=== PATIENT | female | born 1970 | race Caucasian/White ===

== ENCOUNTER 2017-07-13 21:06 | Emergency (ER) | payer OTHER ==
[~2017-07-13] VITALS: Ht 157.5 cm; Wt 96.4 kg
[2017-07-13 21:12] VITALS: TEMP 37; Ht 157.5 cm; Wt 96.4 kg
[2017-07-13] MEDS ORDERED: ONDANSETRON INJ 2 MG/ML 2 ML VIAL IV STA (21:17)
[2017-07-13] MEDS ORDERED: KETOROLAC TROMETHAMINE 30 MG/ML VIAL IV STA (21:17)
[2017-07-13] MEDS ORDERED: LORAZEPAM 2 MG/ML 1 ML VIAL IV STA (21:17)
[2017-07-13] MEDS ORDERED: SODIUM CHLORIDE 0.9% 500ML 500 ML IV STA (21:17)
[2017-07-13] MEDS ORDERED: MoRPHine SULFATE 4 MG/ML 1 ML CARP\\VIAL IV PRN (21:30)
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
[2017-07-13] MEDS ORDERED: ASPI81TA28 PO (21:45)
[2017-07-13] MEDS ORDERED: GLUC500C4 PO (21:47)
[2017-07-13] MEDS ORDERED: HRBLS PO (21:49)
--- NOTE | 2017-07-13 22:27 | DIAGNOSTIC IMAGING REPORT ---
CERVICAL SPINE W/O CT DOSE: 261.75 mGy.cm CLINICAL HISTORY: 46 years-old Female with fall, pain. Acute neck pain status post fall. Initial exam. COMPARISON: None. TECHNIQUE: Multiple axial CT images of the cervical spine were obtained without contrast. A dose lowering technique was utilized adhering to the principles of ALARA. FINDINGS: Vertebral body heights and alignment are normal. No fracture or subluxation is identifed. Moderate intervertebral disc space narrowing at C6-C7. No significant central canal or neural foraminal stenosis is identified. 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 There is mild multilevel facet arthropathy and uncovertebral spurring. The cervical soft tissues appear unremarkable. The visualized lung apices appear clear. IMPRESSION: 1. No acute cervical spine fracture or subluxation. 2. Mild multilevel facet arthrosis and uncovertebral spurring. There is moderate intervertebral disc space narrowing at C6-C7. The above report was generated using voice recognition software. It may contain grammatical, syntax or spelling errors. Electronically signed by: Neftali Kee M.D. 07/13/2017 10:25 PM Dictated Date/Time: 07/13/2017 10:23 PM
--- NOTE | 2017-07-13 23:06 | DIAGNOSTIC IMAGING REPORT ---
CHEST ONE VIEW PORTABLE HISTORY: 46 years-old Female fall, pain acute chest pain status post fall. COMPARISON: None available. TECHNIQUE: Portable upright AP view of the chest. FINDINGS: Cardiac silhouette is mildly enlarged. No pneumothorax, pleural effusion, focal airspace consolidation or overt pulmonary edema. The bones are grossly intact. IMPRESSION: No acute cardiopulmonary process. The above report was generated using voice recognition software. It may contain grammatical, syntax or spelling errors. Electronically signed by: Neftali Kee M.D. 07/13/2017 11:05 PM Dictated Date/Time: 07/13/2017 11:04 PM
--- NOTE | 2017-07-13 23:12 | DIAGNOSTIC IMAGING REPORT ---
LEFT FOREARM 2 VIEWS ROUTINE, LEFT ELBOW MIN 3 VIEWS ROUTINE, LEFT HUMERUS MIN 2 VIEWS ROUTINE, LEFT SHOULDER MIN 2 VIEWS ROUTINE, LEFT CLAVICLE HISTORY: 46 years-old Female fall, pain acute left upper extremity pain status post fall. Initial exam. COMPARISON: None available. TECHNIQUE: 2 views of the left shoulder, 2 views of the left clavicle, 2 views of the left humerus, 3 views of left elbow and 2 views of the left forearm. FINDINGS: SHOULDER: Mild AC joint degenerative changes are noted. Study is mildly limited secondary to positioning. No acute fracture or dislocation of the left humerus. Glenohumeral joint is located. CLAVICLE: No acute fracture or dislocation. HUMERUS: No acute fracture or dislocation. ELBOW: No acute fracture, or dislocation. There is minimal spurring about the medial and lateral epicondyles at the expected insertion sites of the common flexor and extensor tendons respectively. No joint effusion. Minimal spurring of the coronoid process. FOREARM: No acute fracture or dislocation. Negative for opaque foreign body. IMPRESSION: 1. No acute fracture or dislocation identified involving the left clavicle, shoulder or imaged left upper extremity. 2. Mild degenerative changes about the left AC joint and elbow. The above report was generated using voice recognition software. It may contain grammatical, syntax or spelling errors. Electronically signed by: Neftali Kee M.D. 07/13/2017 11:11 PM Dictated Date/Time: 07/13/2017 11:05 PM
--- NOTE | 2017-07-13 23:13 | DIAGNOSTIC IMAGING REPORT ---
LEFT PELVIS/UNILATERAL HIP 2-3VIEWS HISTORY: 46 years-old Female FALL, PAIN, acute pelvic and left hip pain status post fall. COMPARISON: None available TECHNIQUE: AP view of the pelvis with 2 views of the left hip FINDINGS: Mild pubic symphysis degenerative changes are noted. There is no acute fracture or dislocation identified. The left hip appears normal without fracture or dislocation. No significant degenerative changes. Negative for opaque foreign body. IMPRESSION: No acute fracture or dislocation of the pelvis or left hip. The above report was generated using voice recognition software. It may contain grammatical, syntax or spelling errors. Electronically signed by: Neftali Kee M.D. 07/13/2017 11:12 PM Dictated Date/Time: 07/13/2017 11:11 PM
[2017-07-14] VITALS: BP 132/76; PULSE 74; O2SAT 98
[2017-07-31] MEDS ORDERED: CYAN250T PO (21:43)
[2017-07-31] MEDS ORDERED: ZINC1TAB PO (21:44)
[2017-07-31] MEDS ORDERED: ASCO250T5 PO (21:45)
[2017-07-31] MEDS ORDERED: ACET-1256 PO (21:46)
== END 2017-07-14 00:02 | disposition home or self-care (01) ==
LOC: EDBD 21:06 → C.EDB 21:07
DX: S16.1XXA Strain of muscle, fascia and tendon at neck level, initial encounter (principal); T14.8 Other injury of unspecified body region; W01.0XXA Fall on same level from slipping, tripping and stumbling without subsequent striking against object, initial encounter; Y92.481 Parking lot as the place of occurrence of the external cause; Z87.81 Personal history of (healed) traumatic fracture; Z79.82 Long term (current) use of aspirin; Z79.899 Other long term (current) drug therapy; Z80.9 Family history of malignant neoplasm, unspecified; Z83.3 Family history of diabetes mellitus; Z82.49 Family history of ischemic heart disease and other diseases of the circulatory system

== ENCOUNTER 2017-07-31 21:59 | Emergency (ER) | payer SELFPAY ==
[~2017-07-31] VITALS: Ht 157.5 cm; Wt 97.7 kg
[~2017-07-31 21:59] MED LIST: ACET-1256 PO; ASCO250T5 PO; ASPI81TA28 PO; CYAN250T PO; GLUC500C4 PO; HRBLS PO; ZINC1TAB PO
[2017-07-31 22:08] VITALS: TEMP 36.8; Ht 157.5 cm; Wt 97.7 kg
--- NOTE | 2017-07-31 22:34 | DIAGNOSTIC IMAGING REPORT ---
L ELBOW MIN 3 VIEWS ROUTINE CLINICAL HISTORY: left elbow injury 2 wks ago, persistent pain pain COMPARISON: None. DISCUSSION: The bones and joint spaces appear intact. There is no evidence of fracture, dislocation or bony disease. There is no evidence for soft tissue swelling. IMPRESSION: Negative study. The above report was generated using voice recognition software. It may contain grammatical, syntax or spelling errors. Electronically signed by: Pierre Schroeder M.D. 07/31/2017 10:33 PM Dictated Date/Time: 07/31/2017 10:32 PM
[2017-07-31] MEDS ORDERED: GLUC500C4 PO (22:43)
[2017-07-31] MEDS ORDERED: [UNRECOGNIZED DRUG - OTHER] PO (22:43)
[2017-07-31] MEDS ORDERED: ACET-1487 PO (22:43)
--- NOTE | 2017-07-31 23:06 | EMERGENCY ROOM VISIT NOTE ---
History First contact with patient: 22:12 Chief Complaint: ARM PAIN Stated Complaint: FELL LEFT ARM AT [facility] History of Present Illness The patient is a 46 year old female who presents to the Emergency Room with complaints of persistent left elbow pain. The patient states that she fell on July 13 while at [facility]. She was seen here that day and had multiple imaging studies done which were negative. The patient states she has had persistent pain in the left elbow. She states that when she overuses the elbow , she has numbness from the elbow down to the hand. This numbness is not constant. The pain is worse with movement of the elbow. She rates her discomfort a 10/10. She has not followed up with her primary care provider or orthopedics regarding this pain. She denies any new injuries. Review of Systems A complete 10 point review of systems was reviewed with the patient with pertinent positives and negatives as per history of present illness. All else were negative. Past Medical/Surgical History Medical Problems: (1) Leg fracture, right Family History Cancer Diabetes mellitus FH: heart disease Hypertension Social History Smoking Status: Never Smoker Marital Status: single Occupation Status: employed Current/Historical Medications Scheduled Acetaminophen (Tylenol Arthritis Ext Rel), 650 MG PO DAILY Ascorbic Acid (Ascorbic Acid), 250 MG PO DAILY Cyanocobalamin (Vitamin B-12), 250 MCG PO DAILY Glucosamine Sulfate (Glucosamine), 1 TAB PO Q3DAYS Zinc Gluconate (Zinc), 50 MG PO DAILY [New Life Formula], 2 CAP PO DAILY Scheduled PRN Acetaminophen (Tylenol), 1,000 MG PO DAILY PRN for Pain Physical Exam Vital Signs Date Time Temp Pulse Resp B/P (MAP) Pulse Ox O2 Delivery O2 Flow Rate FiO2 07/31/17 22:08 36.8 80 18 170/102 98 Room Air Physical Exam VITALS: Vitals are noted on the nurse's note and reviewed by myself. Vital signs stable. GENERAL: This is a 46 year old female, in no acute distress, nondiaphoretic, well-developed well-nourished. SKIN: There is no erythema or warmth to suggest cellulitis. MUSCULOSKELETAL: No deformities noted. There is mild tenderness over the left elbow. No redness or swelling. Full range of motion of the elbow. NEURO: Patient was alert and oriented to person place and time. Normal sensation over the left upper extremity. Medical Decision & Procedures ER Provider Diagnostic Interpretation: L ELBOW MIN 3 VIEWS ROUTINE CLINICAL HISTORY: left elbow injury 2 wks ago, persistent pain pain COMPARISON: None. DISCUSSION: The bones and joint spaces appear intact. There is no evidence of fracture, dislocation or bony disease. There is no evidence for soft tissue swelling. IMPRESSION: Negative study. Medical Decision Differential diagnosis includes fracture, sprain, contusion, among others. The patient is a 46-year-old female who presents today complaining of persistent left elbow pain. The patient was seen here approximately 2 weeks ago and had negative x-rays. On exam she has mild tenderness of the elbow. X- ray was performed and showed no findings. Patient was given information for orthopedic referral. She was instructed to take anti-inflammatories and conservative measures were discussed. The patient verbalized understanding of my assessment and treatment plan and was discharged home in good condition. Medication Reconcilliation Current Medication List: was personally reviewed by me Blood Pressure Screening Patient's blood pressure: Elevated blood pressure Blood pressure disposition: Elevated BP felt to be situational Impression Primary Impression: Left elbow pain Departure Information Dispostion Home / Self-Care Condition GOOD Referrals No Doctor, Assigned (PCP) Mal Goff M.D. Patient Instructions My [facility] Additional Instructions You have been treated in the Emergency Department for Elbow Pain. For pain control, you can use the following [id number] medicines (if >12 yo): - Regular strength (325mg/tab) Tylenol (acetaminophen) 2 tabs every 4-6 hours as needed. Do not exceed 12 tablets in a 24 hour period. Avoid taking more than 4 grams (4000 mg) of Tylenol per day. This includes any other sources of acetaminophen you may take on a regular basis. - Regular strength (200 mg/tab) Advil (ibuprofen) 1-2 tabs every 4-6 hours as needed. Do not exceed a dose of 3200 mg per day. If this is a recent injury (<24 hrs), ice can be applied to the area of pain for the first 3 days to help decrease pain and inflammation. You have been provided the number for an Orthopaedic Surgeon. You should call this number as soon as possible to establish a follow-up visit from today's Emergency Department visit. Return to the Emergency Department if your current symptoms worsen despite treatment course outlined above, or if you develop any of the following symptoms : intractable pain despite aforementioned treatment course or new onset of numbness or tingling of the arm.
[2017-07-31 23:32] VITALS: BP 132/81; PULSE 69; O2SAT 98
== END 2017-07-31 23:33 | disposition home or self-care (01) ==
LOC: C.EDB 22:01
DX: M25.522 Pain in left elbow (principal); Z83.3 Family history of diabetes mellitus; Z82.49 Family history of ischemic heart disease and other diseases of the circulatory system

== ENCOUNTER 2017-11-26 22:59 | Emergency (ER) | payer SELFPAY ==
[~2017-11-26] VITALS: Ht 157.5 cm; Wt 93.0 kg
[~2017-11-26 22:59] MED LIST changes: +ACET-1487 PO; -ASPI81TA28 PO; -HRBLS PO; +[UNRECOGNIZED DRUG - OTHER] PO
[2017-11-26 23:03] VITALS: TEMP 36.8; Ht 157.5 cm; Wt 93.0 kg
[2017-11-27] MEDS ORDERED: VITA400C3 PO (00:14)
--- NOTE | 2017-11-27 00:19 | EMERGENCY ROOM VISIT NOTE ---
History First contact with patient: 23:24 Chief Complaint: FOOT PAIN Stated Complaint: RIGHT FOOT PAIN History of Present Illness The patient is a 47 year old female who presents to the Emergency Room via private vehicle accompanied by female with complaints of "right foot pain". The patient states that she had a previous injury on July 13 at [facility]. She notes that she slipped on shampoo. She has had pain off and on since that time. She states that she was told she had a fracture but then notes that she was told that she did not. She was put in a walking boot. She states that she was doing well until this Thursday when she was walking and injured the foot again in the same region. She notes now she cannot bear weight secondary to pain. She rates her pain is a 13/10. She points to the lateral malleolus of the right ankle as a location of pain. She denies any numbness or tingling. Review of Systems A complete 6-point Review of Systems was discussed with the patient, with pertinent positives and negatives listed in the History of Present Illness. All remaining Review of Systems questions can be considered negative unless otherwise specified. Past Medical/Surgical History Medical Problems: (1) Leg fracture, right Family History Cancer Diabetes mellitus FH: heart disease Hypertension Social History Smoking Status: Former Smoker Marital Status: single Occupation Status: employed Current/Historical Medications Scheduled Acetaminophen (Tylenol Arthritis Ext Rel), 650 MG PO DAILY Ascorbic Acid (Ascorbic Acid), 250 MG PO DAILY Cyanocobalamin (Vitamin B-12), 250 MCG PO DAILY Glucosamine Sulfate (Glucosamine), 1 TAB PO Q3DAYS Vitamin E (Vitamin E 400 Iu), 400 INTER.UNIT PO DAILY Zinc Gluconate (Zinc), 50 MG PO DAILY [New Life Formula], 2 CAP PO DAILY Scheduled PRN Acetaminophen (Tylenol), 1,000 MG PO DAILY PRN for Pain Physical Exam Vital Signs Date Time Temp Pulse Resp B/P (MAP) Pulse Ox O2 Delivery O2 Flow Rate FiO2 11/26/17 23:03 36.8 75 16 164/100 98 Room Air Physical Exam VITAL SIGNS - Vital signs and nursing notes were reviewed. Stable. Hypertensive. GENERAL -47-year-old female appearing her stated age who is in no acute distress. Communicates well with provider and answers questions appropriately. SKIN - Without rashes. No petechial rashes. The skin overlying the right ankle is unremarkable. HEAD - NC/AT. EXTREMITIES - No clubbing or peripheral cyanosis. No pretibial edema present. Tenderness to palpation overlying the patient's right lateral malleolus. No other proximal or distal tenderness noted. Decreased range of motion secondary to pain. She is neurovascularly intact in this region. Medical Decision & Procedures ER Provider Diagnostic Interpretation: Right ankle x-ray as read by myself to reveal no acute fracture or dislocation. Degenerative changes noted. This was compared to previous x-ray here and at this time I do not believe has been any significant change. Medical Decision Patient was seen and evaluated as above. She presents to us today with right ankle pain. X-ray was obtained with results as above. This was compared to previous x-ray and no significant change was noted. I suspect likely sprained the ankle. She was placed in her well-padded fracture boot. She is to remain nonweightbearing with crutches she has at home. She is to follow with her established orthopedic surgeon. She is to call them tomorrow. She was educated upon management, educated upon worrisome symptoms which to return, had questions answered prior to discharge, and was discharged home in good condition. In the evaluation and treatment of this patient, the following differential diagnoses were considered: Ankle Fracture, Ankle Sprain, Distal Fibula Fracture , Distal Tibia Fracture, Foot Fracture, Maisonneuve Fracture. Impression Primary Impression: Ankle pain, right Departure Information Dispostion Home / Self-Care Condition GOOD Referrals No Doctor, Assigned (PCP) Patient Instructions My [facility] Additional Instructions You have been treated in the Emergency Department for a Right Ankle injury. For pain control, you can use the following [id number] medicines : - Regular strength (325mg/tab) Tylenol (acetaminophen) 2 tabs every 4-6 hours as needed. Do not exceed 12 tablets in a 24 hour period. Avoid taking more than 3 grams (3000 mg) of Tylenol per day. This includes any other sources of acetaminophen you may take on a regular basis. - Regular strength (200 mg/tab) Advil (ibuprofen) 1-2 tabs every 4-6 hours as needed. Do not exceed a dose of 3200 mg per day. If this is a recent injury (<24 hrs), ice can be applied to the area of pain for the first 3 days to help decrease pain and inflammation. You should call your orthopedic doctor as soon as possible to establish a follow-up visit from today's Emergency Department visit. Keep the ankle brace/splint in place until cleared by Orthopedics. Use the crutches you have been provided to keep ALL weight off of the ankle until weight bearing is tolerable. Return to the Emergency Department if your current symptoms worsen despite treatment course outlined above, or if you develop any of the following symptoms : intractable pain despite aforementioned treatment course or new onset of numbness or tingling of the foot.
[2017-11-27 00:44] VITALS: BP 153/87; PULSE 69; O2SAT 97
--- NOTE | 2017-11-27 07:30 | DIAGNOSTIC IMAGING REPORT ---
RIGHT ANKLE 3 VIEWS HISTORY: r ankle pain COMPARISON: Right ankle 10/12/2017. FINDINGS: No fracture or dislocation within the right ankle. Diffuse soft tissue swelling. Plantar and posterior calcaneal spurs. Well-corticated ossific density adjacent to the lateral base of the fifth metatarsal. This appears slightly more displaced when compared to the prior studies and could represent an avulsion injury of the peroneus brevis tendon. IMPRESSION: 1. No acute fracture or dislocation within the right ankle. 2. Well-corticated ossific density adjacent to the lateral base of the fifth metatarsal. This appears slightly more displaced when compared to the prior studies and could represent an avulsion injury of the peroneus brevis tendon. Recommend correlation for pain at this location to assess for an acute injury. Electronically signed by: Gavin Sommer M.D. 11/27/2017 7:29 AM Dictated Date/Time: 11/27/2017 7:27 AM
== END 2017-11-27 00:45 | disposition home or self-care (01) ==
LOC: C.EDB 23:00 → C.EDA 11-27 00:45
DX: M79.671 Pain in right foot (principal); Z87.828 Personal history of other (healed) physical injury and trauma; Z87.891 Personal history of nicotine dependence; R93.7 Abnormal findings on diagnostic imaging of other parts of musculoskeletal system

== ENCOUNTER 2019-10-12 12:54 | Inpatient (IN) ==
[2019-10-12] MEDS ORDERED: SODIUM CHLORIDE 0.9% 1000ML 1,000 ML IV ONE (13:39)
[2019-10-12] MEDS ORDERED: ONDANSETRON INJ 2 MG/ML 2 ML VIAL IV STA (13:39)
[2019-10-12] MEDS ORDERED: SUCRALFATE 1 GM TAB PO STA (13:40)
[2019-10-12] MEDS ORDERED: GI COCKTAIL ED USE PO ONE (13:40)
[2019-10-12] MEDS ORDERED: FAMOTIDINE 40 MG TABLET PO ONE (13:40)
[2019-10-12 13:46] LABS: Basophils # (auto) 0.03 K/uL (0-0.2); Basophils % (auto) 0.3 %; Eosinophils % (auto) 2.2 %; Hematocrit (blood only) 36.8 % (37-47); Hemoglobin 12.2 g/dL (12.0-16.0); Immature Granulocytes # (auto) 0.01 K/uL (0.00-0.02); Immature Granulocytes % (auto) 0.1 %; Lymphocytes # (auto) 2.07 K/uL (1.2-3.4); Lymphocytes % (auto) 22.3 %; Mean Corpuscular Hemoglobin 28.4 pg (25-34); Mean Corpuscular Hgb Conc 33.2 g/dL (32-36); Mean Corpuscular Volume 85.8 fL (80-100); Mean Platelet Volume 8.7 fL (7.4-10.4); Monocytes # (auto) 0.62 K/uL (0.11-0.59); Monocytes % (auto) 6.7 %; Neutrophils # (auto) 6.35 K/uL (1.4-6.5); Neutrophils % (auto) 68.4 %; Platelet Count 337 K/uL (130-400); RDW Coefficient of Variation 15.4 % (11.5-14.5); RDW Standard Deviation 48.3 fL (36.4-46.3); Red Blood Count 4.29 M/uL (4.2-5.4); White Blood Count 9.28 K/uL (4.8-10.8)
--- NOTE | 2019-10-12 13:56 | XRay Report ---
XR chest 1V portable CLINICAL HISTORY: Chest Pain dyspnea COMPARISON STUDY: 07/13/2017 FINDINGS: The bones soft tissues and hemidiaphragms are normal. The cardiomediastinal silhouette is n ormal. The lungs are clear. The pulmonary vasculature is normal. IMPRESSION: Negative chest. The above report was generated using voice recognition software. It may contain grammatical, syntax or spelling errors. Electronically signed by: Pierre Schroeder M.D. 10/12/2019 1:55 PM
[2019-10-12] MEDS ORDERED: FAMOTIDINE 20 MG TAB PO ONE (14:00)
[2019-10-12 14:08] LABS: Albumin Level 3.8 gm/dl (3.4-5.0); BUN Creatinine Ratio 13.6 (10-20); Calcium 9.2 mg/dl (8.5-10.1); Creatinine Clr Calc Pharmacy 82.6 ml/min; Est GFR (African American) 82.6; Est GFR (Non-African American) 71.2; Potassium 3.7 mmol/L (3.5-5.1)
[2019-10-12 14:13] LABS: Appearance Urine Cloudy (Clear); Bacteria Urine Automated 1+ (Negative); Bilirubin Urine Negative (Negative); Blood Urine Negative (Negative); Color Urine Dark Yellow; Epithelial Cell Urine Auto >30 /lpf (0-5); Glucose Urine UA Negative (Negative); Ketones Urine Trace (Negative); Leukocyte Esterase Urine 1+ (Negative); Nitrite Urine Negative (Negative); Protein Urine 1+ (Negative); Specific Gravity Urine 1.034 (1.000-1.030); Urobilinogen Urine Negative (Negative); WBC Urine Automated >30 /hpf (0-5)
[2019-10-12 14:16] LABS: Albumin Globulin Ratio 0.9 (0.9-2); Bilirubin,Total 0.3 mg/dl (0.2-1); Creatine Kinase MB 5.2 ng/ml (0.5-3.6); Globulin 4.4 gm/dl (2.5-4.0); Total Protein 8.2 gm/dl (6.4-8.2); Troponin I 1.54 ng/ml (0-0.045)
[2019-10-12] MEDS ORDERED: ASPIRIN CHEW 324 MG PO STA ×2 (14:18→14:20)
--- NOTE | 2019-10-12 14:19 | Emergency Department Note ---
Entered by Bailey Michelle acting as a scribe for History of Present Illness General Chief complaint: Chest Pain Stated complaint: CHEST PAIN Time Seen by Provider: 10/12/19 13:28 Source: patient History of Present Illness Provider complaint: Chest Pain Onset (ago): week(s) 1 Location: chest Radiation: non-radiation Maximum Pain Intensity: 5 Exacerbated By: + eating Associated symptoms: + denies other symptoms (Diarrhea, abdominal pain) and + nausea/vomiting The patient is a 49 year old female who presents to the Emergency Room with complaints of chest pain that began 1 week ago. The patient states the pain does not radiate anywhere else on her body but is exacerbated by eating. The patient reports she experiences this chest pain before and after vomiting but denies experiencing any diarrhea or abdominal pain. The patient states that her chest pain takes about 20-45 minutes to go away. The patient mentioned that there is no cardiac history in her family and she does not smoke or do drugs. The patient also notes that she did not hit her head. Home Medications Home Medications Medication Instructions Recorded Confirmed Type acetaminophen 1,000 mg PO BID PRN 07/19/18 10/17/19 History ascorbic acid (vitamin C) [Vitamin 500 mg PO DAILY 10/12/19 10/17/19 History C] cyanocobalamin (vitamin B-12) 250 mcg PO DAILY 10/12/19 10/17/19 History [Vitamin B-12] aspirin [Ecotrin Low Strength] 81 mg PO QAM #30 tab 10/14/19 10/17/19 Rx atorvastatin 80 mg PO QAM #30 tab 10/14/19 10/17/19 Rx clopidogrel [Plavix] 75 mg PO QPM #30 tab 10/14/19 10/17/19 Rx lisinopril [Zestril] 5 mg PO QAM #30 tab 10/14/19 10/17/19 Rx metoprolol succinate 50 mg PO QPM #30 tab 10/14/19 10/17/19 Rx vitamin E 1,000 unit capsule See Rx Instructions PO Q3D cap 10/16/19 10/17/19 History Allergies Allergy/AdvReac Type Severity Reaction Status Date / Time TOPICAL IODINE Allergy Intermediate "SKIN Uncoded 10/12/19 15:32 BLISTERS" Past Med/Surg History Medical History No acute medical problems No significant medical problems Surgical History No significant past surgical history Family History Other No pertinent family history in first degree relatives Social History Preferred Language: Pashto Gate Person Required: No Beliefs That Will Affect Care: None Current Living Situation: Family Feels Safe at Home: Yes Smoking Status: Former smoker Hx Alcohol Use: No Hx Substance Use: No Review of Systems See HPI for pertinent positives & negatives. and A total of 10 systems reviewed and were otherwise negative Physical Exam Vital Signs Vital Signs - 24 hr 10/12/19 13:04 10/12/19 13:34 10/12/19 14:03 Temperature 36.5 C Temperature Source Oral Pulse Rate 95 H Pulse Rate [Apical] 87 Pulse Rate from SpO2 Sensor Pulse Rhythm [Apical] Pulse Strength [Apical] Respiratory Rate 18 28 H Respiratory Effort / Characteristics Respiratory Depth Normal Blood Pressure 169/109 H Blood Pressure [Right Arm] 144/91 H Blood Pressure Mean 129 Blood Pressure Mean [Right Arm] 108 Blood Pressure Position Sitting Blood Pressure Position [Right Arm] Pulse Oximetry 97 96 96 Oxygen Delivery Method Room Air Room Air Sepsis Recent Fever Within 48 Hours No Sepsis Action Taken by Nursing No Action Required 10/12/19 14:30 10/12/19 15:31 Temperature Temperature Source Pulse Rate 80 Pulse Rate [Apical] 102 H Pulse Rate from SpO2 Sensor 81 Pulse Rhythm [Apical] Regular Pulse Strength [Apical] Normal Respiratory Rate 21 20 Respiratory Effort / Characteristics Non-Labored Respiratory Depth Normal Blood Pressure 158/93 H Blood Pressure [Right Arm] Blood Pressure Mean 117 Blood Pressure Mean [Right Arm] Blood Pressure Position Blood Pressure Position [Right Arm] Lying Pulse Oximetry 98 97 Oxygen Delivery Method Room Air Room Air Sepsis Recent Fever Within 48 Hours Sepsis Action Taken by Nursing GENERAL: Awake, alert, well-appearing, tearful on exam. HENT: Normocephalic, atraumatic. Oropharynx unremarkable. EYES: Normal conjunctiva. Sclera non-icteric. NECK: Supple. No nuchal rigidity. FROM. No JVD. RESPIRATORY: Clear to auscultation. CARDIAC: Regular rate, normal rhythm. Extremities warm and well perfused. Pulses equal. ABDOMEN: Soft, non-distended. No tenderness to palpation. No rebound or guarding. No masses. RECTAL: Deferred. MUSCULOSKELETAL: Chest examination reveals no tenderness. The back is symmetrical on inspection without obvious abnormality. There is no CVA te nderness to palpation. No joint edema. LOWER EXTREMITIES: Calves are equal size bilaterally and non-tender. No edema. No discoloration. NEURO: Normal sensorium. No sensory or motor deficits noted. SKIN: No rash or jaundice noted. Course Course 1334: Past medical records reviewed. The patient was evaluated in room A04B. A complete history and physical exam was performed. 1423: I spoke with Dr. Farris- Cardiology about the patient's case and he asked me to start a Heparin drip for the patient. He will accept the patient for further evaluation. Administered Medications Discontinued Medications Acetaminophen (Tylenol) 650 mg PO Q4H PRN PRN Reason: Pain or Fever Stop: 11/12/19 21:51 Last Admin: 10/13/19 22:01 Dose: 650 mg Documented by: [id number] Al Hydrox/Mg Hydrox/Simethicone () 1 dose PO ONE ONE Stop: 10/12/19 13:41 Last Admin: 10/12/19 14:26 Dose: 1 dose Documented by: [id number] Aspirin (Aspirin) 324 mg PO NOW STA Stop: 10/12/19 14:19 Last Admin: 10/12/19 14:30 Dose: 324 mg Documented by: [id number] Aspirin (Aspirin) 324 mg PO NOW STA Stop: 10/12/19 14:21 Last Admin: 10/12/19 14:30 Dose: Not Given Documented by: [id number] Aspirin (Ecotrin Ectab) 81 mg PO [facility] Stop: 11/12/19 08:59 Last Admin: 10/14/19 07:40 Dose: 81 mg Documented by: [id number] Admin: 10/13/19 08:14 Dose: 81 mg Documented by: [id number] Atorvastatin Calcium (Lipitor) 80 mg PO [facility] Stop: 11/12/19 08:59 Last Admin: 10/14/19 07:40 Dose: 80 mg Documented by: [id number] Admin: 10/13/19 08:14 Dose: 80 mg Documented by: [id number] Famotidine (Pepcid) 40 mg PO NOW ONE Stop: 10/12/19 14:01 Last Admin: 10/12/19 14:25 Dose: 40 mg Documented by: [id number] Fentanyl Citrate (Fentanyl Citrate) Confirm Administered Dose 100 mcg .ROUTE .STK-MED ONE Stop: 10/12/19 15:26 Last Admin: 10/13/19 10:33 Dose: Not Given Documented by: [id number] Heparin Sodium (Porcine) (Heparin Iv Bolus (Cnc Operator Use Only)) Confirm Administered Dose 10,000 units .ROUTE .STK-MED ONE Stop: 10/12/19 15:26 Last Admin: 10/13/19 10:33 Dose: Not Given Documented by: [id number] Heparin Sodium (Porcine) (Heparin Iv Bolus (Cnc Operator Use Only)) Confirm Administered Dose 10,000 units .ROUTE .STK-MED ONE Stop: 10/12/19 16:36 Last Admin: 10/13/19 10:34 Dose: Not Given Documented by: [id number] Heparin Sodium/Dextrose () 1 ea IV ONE ONE; Protocol Stop: 10/12/19 14:26 Last Admin: 10/12/19 20:37 Dose: Not Given Documented by: [id number] Heparin Sodium/Sodium Chloride (Heparin/Nss 1000 Unit/500ml Flush Bag) Confirm Administered Dose 3,000 units IV .STK-MED ONE Stop: 10/12/19 15:27 Last Admin: 10/13/19 10:33 Dose: Not Given Documented by: [id number] Sodium Chloride (Nss 1000ml) 1,000 mls @ 999 mls/hr IV .Q1H1M ONE Stop: 10/12/19 14:39 Last Admin: 10/12/19 14:30 Dose: Not Given Documented by: [id number] Heparin Sodium/Dextrose (Heparin Sodium/Dextrose) 25,000 units in 500 mls @ 0.02 mls/hr IV .Q24H SHANIA; Protocol Stop: 11/11/19 14:29 Last Admin: 10/13/19 07:04 Dose: Not Given Documented by: [id number] Sodium Chloride (Nss 1000ml) 1,000 mls @ 100 mls/hr IV .Q10H SHANIA Stop: 10/12/19 22:59 Last Infusion: 10/13/19 05:00 Dose: 0 mls/hr Documented by: [id number] Admin: 10/12/19 18:56 Dose: 100 mls/hr Documented by: [id number] Lisinopril (Zestril) 5 mg PO QAM [facility] Stop: 11/12/19 08:59 Last Admin: 10/14/19 07:41 Dose: 5 mg Documented by: [id number] Admin: 10/13/19 08:14 Dose: 5 mg Documented by: [id number] Metoprolol Tartrate (Lopressor) 25 mg PO BID [facility] Stop: 11/11/19 20:59 Last Admin: 10/14/19 07:40 Dose: 25 mg Documented by: [id number] Admin: 10/13/19 20:13 Dose: 25 mg Documented by: [id number] Admin: 10/13/19 08:14 Dose: 25 mg Documented by: [id number] Admin: 10/12/19 20:36 Dose: 25 mg Documented by: [id number] Midazolam HCl (Versed) Confirm Administered Dose 2 mg .ROUTE .STK-MED ONE Stop: 10/12/19 15:27 Last Admin: 10/13/19 10:34 Dose: Not Given Documented by: [id number] Midazolam HCl (Versed) Confirm Administered Dose 2 mg .ROUTE .STK-MED ONE Stop: 10/12/19 17:01 Last Admin: 10/13/19 10:34 Dose: Not Given Documented by: [id number] Nicardipine HCl (Cardene) Confirm Administered Dose 25 mg .ROUTE .STK-MED ONE Stop: 10/12/19 15:26 Last Admin: 10/13/19 10:33 Dose: Not Given Documented by: [id number] Nitroglycerin (Nitro-Bid 2%) 1 inch EXT Q6H [facility] Stop: 11/11/19 14:44 Last Admin: 10/12/19 14:44 Dose: 1 inch Documented by: [id number] Nitroglycerin/Dextrose (Nitroglycerin/D5w 100 Mcg/Ml 20ml Syringe) Confirm Administered Dose 2,000 mcg .ROUTE .STK-MED ONE Stop: 10/12/19 15:27 Last Admin: 10/13/19 10:33 Dose: Not Given Documented by: [id number] Ondansetron HCl (Zofran) 4 mg IV NOW STA Stop: 10/12/19 13:40 Last Admin: 10/12/19 14:23 Dose: 4 mg Documented by: [id number] Perflutren Lipid Microsphere (Definity) 2 ml IV ONCE ONE Stop: 10/13/19 11:14 Last Admin: 10/13/19 11:14 Dose: 2 ml Documented by: [id number] Sucralfate (Carafate Tab) 1 gm PO NOW STA Stop: 10/12/19 13:41 Last Admin: 10/12/19 14:25 Dose: 1 gm Documented by: [id number] Ticagrelor (Brilinta) 90 mg PO BID [facility] Stop: 11/11/19 20:59 Last Admin: 10/14/19 07:40 Dose: 90 mg Documented by: [id number] Admin: 10/13/19 20:13 Dose: 90 mg Documented by: [id number] Admin: 10/13/19 08:14 Dose: 90 mg Documented by: [id number] Admin: 10/12/19 20:36 Dose: 90 mg Documented by: [id number] Ticagrelor (Brilinta) Confirm Administered Dose 180 mg PO .STSpeechVive-MED ONE Stop: 10/12/19 17:23 Last Admin: 10/13/19 10:34 Dose: Not Given Documented by: [id number] Critical Care Time Critical Care Time: Yes Total Critical Care Time: 90 I have personally spent approximately 90 minutes of critical care time in the direct management of this patient. This includes bedside care, interpretation of diagnostic studies, and testing, discussion with consultants, patient, and family members, and other required patient management activities. This approx imate 90 minutes is in excess of all separately billable procedures. Medical Decision Making Differential Diagnosis Differential diagnosis: Etiologies such as shingles, musculoskeletal pain, pericarditis, myocarditis, cardiac ischemia, pericardial tamponade, pneumonia, pneumothorax, pleural effusion, hemothorax, pleurisy, aortic pathology, pulmonary embolism, intra- abdominal process, as well as others were considered. Medical Records Attestation: I reviewed the patient's medical records. Home Medications Current Medication List: was personally reviewed by me Laboratory Data Attestation: I reviewed the patient's lab results. Result diagrams: 10/12/19 13:36 10/13/19 11:22 Lab Results 10/12/19 10/12/19 10/12/19 Range/Units 13:36 13:36 13:36 WBC 9.28 (4.8-10.8) K/uL RBC 4.29 (4.2-5.4) M/uL Hgb 12.2 (12.0-16.0) g/dL Hct 36.8 L (37-47) % MCV 85.8 (80-100) fL MCH 28.4 (25-34) pg MCHC 33.2 (32-36) g/dL RDW Std Deviation 48.3 H (36.4-46.3) fL RDW Coeff of Gloria 15.4 H (11.5-14.5) % Plt Count 337 (130-400) K/uL MPV 8.7 (7.4-10.4) fL Immature Gran % (Auto) 0.1 % Neut % (Auto) 68.4 % Lymph % (Auto) 22.3 % [place] % (Auto) 6.7 % Eos % (Auto) 2.2 % Baso % (Auto) 0.3 % Immature Gran # (Auto) 0.01 (0.00-0.02) K/uL Neut # (Auto) 6.35 (1.4-6.5) K/uL Lymph # (Auto) 2.07 (1.2-3.4) K/uL [place] # (Auto) 0.62 H (0.11-0.59) K/uL Eos # (Auto) 0.20 (0-0.5) K/uL Baso # (Auto) 0.03 (0-0.2) K/uL PT (9.0-12.0) Seconds INR (0.9-1.1) APTT (21.0-31.0) Seconds PTT Ratio Sodium 139 (136-145) mmol/L Potassium 3.7 (3.5-5.1) mmol/L Chloride 107 (98-107) mmol/L Carbon Dioxide 24 (21-32) mmol/L Anion Gap 8.0 (3-11) BUN 13 (7-18) mg/dl Creatinine 0.94 (0.6-1.2) mg/dl Est Cr Clr Drug Dosing 82.6 ml/min Est GFR ( Amer) 82.6 Est GFR (Non-Af Amer) 71.2 BUN/Creatinine Ratio 13.6 (10-20) Glucose 106 H (70-99) mg/dl Calcium 9.2 (8.5-10.1) mg/dl Total Bilirubin 0.3 (0.2-1) mg/dl AST 30 (15-37) U/L ALT 61 (12-78) U/L Alkaline Phosphatase 79 (45-117) U/L Total Creatine Kinase 138 (26-192) U/L CK-MB (CK-2) 5.2 H (0.5-3.6) ng/ml CK/CKMB % Calc 3.8 H (0-3.0) Troponin I 1.540 H* (0-0.045) ng/ml Total Protein 8.2 (6.4-8.2) gm/dl Albumin 3.8 (3.4-5.0) gm/dl Globulin 4.4 H (2.5-4.0) gm/dl Albumin/Globulin Ratio 0.9 (0.9-2) Lipase 108 (73-393) U/L Urine Color Dark Yellow Urine Appearance Cloudy A (Clear) Urine pH 5.0 (4.5-7.5) Ur Specific [place] 1.034 H (1.000-1.030) Urine Protein 1+ H (Negative) Urine Glucose (UA) Negative (Negative) Urine Ketones Trace H (Negative) Urine Blood Negative (Negative) Urine Nitrite Negative (Negative) Urine Bilirubin Negative (Negative) Urine Urobilinogen Negative (Negative) Ur Leukocyte Esterase 1+ H (Negative) Urine WBC (Auto) >30 H (0-5) /hpf Urine RBC (Auto) 5-10 H (0-4) /hpf U Hyaline Cast (Auto) 10-30 H (0-5) /lpf U Epithel Cells (Auto) >30 H (0-5) /lpf Urine Bacteria (Auto) 1+ H (Negative) 10/12/19 10/13/19 10/13/19 Range/Units 13:36 11:22 14:04 WBC (4.8-10.8) K/uL RBC (4.2-5.4) M/uL Hgb (12.0-16.0) g/dL Hct (37-47) % MCV (80-100) fL MCH (25-34) pg MCHC (32-36) g/dL RDW Std Deviation (36.4-46.3) fL RDW Coeff of Gloria (11.5-14.5) % Plt Count (130-400) K/uL MPV (7.4-10.4) fL Immature Gran % (Auto) % Neut % (Auto) % Lymph % (Auto) % [place] % (Auto) % Eos % (Auto) % Baso % (Auto) % Immature Gran # (Auto) (0.00-0.02) K/uL Neut # (Auto) (1.4-6.5) K/uL Lymph # (Auto) (1.2-3.4) K/uL [place] # (Auto) (0.11-0.59) K/uL Eos # (Auto) (0-0.5) K/uL Baso # (Auto) (0-0.2) K/uL PT 9.9 (9.0-12.0) Seconds INR 1.0 (0.9-1.1) APTT 25.8 (21.0-31.0) Seconds PTT Ratio 1.0 Sodium 140 (136-145) mmol/L Potassium 3.9 (3.5-5.1) mmol/L Chloride 109 H (98-107) mmol/L Carbon Dioxide 26 (21-32) mmol/L Anion Gap 5.0 (3-11) BUN 11 (7-18) mg/dl Creatinine 0.78 (0.6-1.2) mg/dl Est Cr Clr Drug Dosing 98.5 ml/min Est GFR ( Amer) 103.5 Est GFR (Non-Af Amer) 89.3 BUN/Creatinine Ratio 14.3 (10-20) Glucose 95 (70-99) mg/dl Calcium 9.3 (8.5-10.1) mg/dl Total Bilirubin (0.2-1) mg/dl AST (15-37) U/L ALT (12-78) U/L Alkaline Phosphatase (45-117) U/L Total Creatine Kinase (26-192) U/L CK-MB (CK-2) (0.5-3.6) ng/ml CK/CKMB % Calc (0-3.0) Troponin I 3.850 H* (0-0.045) ng/ml Total Protein (6.4-8.2) gm/dl Albumin (3.4-5.0) gm/dl Globulin (2.5-4.0) gm/dl Albumin/Globulin Ratio (0.9-2) Lipase (73-393) U/L Urine Color Urine Appearance (Clear) Urine pH (4.5-7.5) Ur Specific [place] (1.000-1.030) Urine Protein (Negative) Urine Glucose (UA) (Negative) Urine Ketones (Negative) Urine Blood (Negative) Urine Nitrite (Negative) Urine Bilirubin (Negative) Urine Urobilinogen (Negative) Ur Leukocyte Esterase (Negative) Urine WBC (Auto) (0-5) /hpf Urine RBC (Auto) (0-4) /hpf U Hyaline Cast (Auto) (0-5) /lpf U Epithel Cells (Auto) (0-5) /lpf Urine Bacteria (Auto) (Negative) Imaging Data Radiologist's Impression: Radiology results as stated below per my review and the radiologist's interpretation: XR chest 1V portable CLINICAL HISTORY: Chest Pain dyspnea COMPARISON STUDY: 07/13/2017 FINDINGS: The bones soft tissues and hemidiaphragms are normal. The cardiomediastinal silhouette is normal. The lungs are clear. The pulmonary vasculature is normal. IMPRESSION: Negative chest. The above report was generated using voice recognition software. It may contain grammatical, syntax or spelling errors. Electronically signed by: Pierre Schroeder M.D. 10/12/2019 1:55 PM ECG Data Attestation: I personally reviewed and interpreted this ECG as follows: Indication: + chest pain Rate (beats per minute): 96 Rhythm: + normal sinus ECG ST segments: + ST depression (Lateral) ECG Findings: + LVH and + Other (Old inferior infarct. Old atrial septal infarct. Normal axis. ) Blood Pressure Blood Pressure Findings: Elevated blood pressure Blood Pressure Disposition: further management by hospitalist CYNTHIA Narrative This is a 49-year-old female who presents emergency department complaining of vomiting as well as chest pain that has been ongoing since . The here the emergency department the patient was found to have an elevation in her troponin and I am concerned that the patient is having an NSTEMI. For this reason I did consult cardiology. The patient was started on a heparin drip and given aspirin as well as nitro. The patient was taken to the cardiac Cnc Operator. Patient was in agreement with the treatment plan. Impression & Plan Non-STEMI (non-ST elevated myocardial infarction), Chest pain Discharge Plan Visit Data *Final* Discharge Date/Time: 10/12/19 15:50 Chief Complaint: Chest Pain Stated Complaint: CHEST PAIN ED Provider: Errol Richter Discharge Problem: Non-STEMI (non-ST elevated myocardial infarction), Chest pain Patient Disposition: Still a Patient Discharge Instructions Interventions: ED Discharge Assessment Last Done: 10/12/19 15:25 Discharge Problem: Chest pain Qualifiers: Chest pain type: unspecified Qualified Code(s): R07.9 - Chest pain, unspecified The scribe's documentation has been prepared under my direction and personally reviewed by me in its entirety. I confirm that the note above accurately reflects all work, treatment, procedures, and medical decision making performed by me.
[2019-10-12] MEDS ORDERED: Heparin IV Standard *NO* Bolus IV ONE (14:25)
[2019-10-12] MEDS ORDERED: HEPARIN SODIUM/DEXTROSE 25,000 UNITS/500 ML BAG IV SCH (14:30)
[2019-10-12] MEDS ORDERED: NITROGLYCERIN 2% OINTMENT 30GM TUBE EXT SCH (14:45)
[2019-10-12 14:56] LABS: Partial Thromboplastin Time 25.8 Seconds (21.0-31.0); Prothrombin Time 9.9 Seconds (9.0-12.0)
--- NOTE | 2019-10-12 15:16 | Pre Anesthesia Assessment ---
Date of Service October 12, 2019 Pre Sedation Assessment Vital Signs Temp Pulse Pulse Resp BP BP Pulse Ox 10/12/19 14:03 96 10/12/19 13:34 87 28 H 144/91 H 96 10/12/19 13:04 36.5 C 95 H 18 169/109 H 97 Cardiovascular + regular rate Respiratory + respiratory effort normal Pre-Sedation Airway Assessment Smoking Status: Never smoker Hx Sleep Apnea: No Hx Difficult Intubation: No Short, Thick Neck: No Thyromental Distance: > or= 3.5 Finger Breadths Oral Cavity: + WNL Mallampati Class: III ASA: ASA2 Procedure Planning Contraindications for Sedation: none Current Medications Reviewed: Yes Notes The planned sedation has been discussed with the patient. Informed Consent was obtained. I have identified the patient, determined the appropriateness of sedation and have assessed the patient immediately prior to the procedure. All medicine(s) and interventions are by my order.
[2019-10-12] MEDS ORDERED: fentaNYL citrate 100 MCG/2 ML VIAL ONE (15:25)
[2019-10-12] MEDS ORDERED: NiCARDipine HCL INJ 2.5 MG/ML 10 ML AMP ONE (15:25)
[2019-10-12] MEDS ORDERED: HEPARIN (PORCINE) 1000 UNIT/ML 10 ML (CATH LAB USE ONLY) ONE ×2 (15:25→16:35)
[2019-10-12] MEDS ORDERED: NITROGLYCERIN/D5W 100MCG/ML 20ML SYR ONE (15:26)
[2019-10-12] MEDS ORDERED: MIDAZOLAM HCL 1 MG/ML 2ML VIAL ONE ×2 (15:26→17:00)
--- NOTE | 2019-10-12 16:21 | Cardiac Catheterization ---
[facility] Data: Regulatory Affairs Analyst Cardiac Status Clinical evaluation leading to the procedure CAD Presenation: Unstable angina Diagnostic Physicians Name: Sixto Farris MD Closure Device Recommendations: PCI without planned CABG Cardiac Cath Procedure Full Procedure Date October 12, 2019 Pre-Procedure Diagnosis Pre-Procedure Diagnosis: Non STEMI AUC Score AUC Score: 8 Post-Procedure Diagnosis Post-Procedure Diagnosis: Severe CAD Procedure(s) Performed Procedure(s) Performed: Coronary Angiography and Left Heart Cath Lens Examiner Sixto Farris MD Wrapping Clerk(s) none Estimated Blood Loss Estimated Blood Loss: 5cc Medication(s) Medication(s): Fentanyl, Heparin, Lidocaine 1%, Nicardipine, Nitroglycerin and Versed Summary of Findings Equipment used: 5 [employer] 4 Right radial artery approach Coronary angiography: Left main: Left main was normal in size and caliber and bifurcated normally into the left anterior descending and left circumflex arteries. No significant disease in this vessel Left anterior descending: The left anterior descending was subtotally occluded in its midportion. It had a 90% stenosis prior to the takeoff of the first diagonal branch. The ostial portion of the first diagonal had 50 to 60% stenosis. The ongoing vessel fills via right to left collaterals and had PATIENCE II flow. Left circumflex: Left circumflex artery was a nondominant vessel. There was a medium sized high first OM branch. A diminutive second OM branch and a large branching third OM system. There is a 50 to 60% stenosis prior to the takeoff of the third OM. There was a 60 to 70% stenosis in the more lateral limb of the third obtuse marginal branch. Right coronary artery: The right coronary artery was a dominant vessel producing the PDA. There were luminal irregularities throughout this vessel and a discrete 99% stenosis in its midportion. The most proximal branch of the PDA he had a approximately 80% stenosis at its ostium. There were right to left collaterals which filled the distal left anterior descending artery. Hemodynamics Rest Ao:: 125/82 mmHg Final Ao: 154/95 mmHg LV: 125/2 mmHg with left ventricular end-diastolic pressure of 5 mmHg Recommendations Recommendations: PCI without planned CABG Radiation Exposure (mGy) q Contrast (mls) 70 cc Disposition PCU I attest to the content of the Intraoperative Record and any orders documented therein. Any exceptions are noted below. [facility] Card Cath Procedure Codes Cardiac Catheterization Procedure 1: Cardiovascular Cath Procedures: 84469 Coronaries and LHC (+/-LV) Moderate Sedation Procedure 1: Sedation/Anesthesia: 87668 Mod Sedation by the same physician;Init15 Min Child Age 5 & Up PG Care Time/CCT Total # of Minutes Spent Total Time Spent with Patient: Total time spent is greater than 50% in coordination of care (as documented) at patient's floor/unit and/or counseling patient:
--- NOTE | 2019-10-12 16:29 | Cardiology Consultation ---
Date of Consultation October 12, 2019 Assessment & Plan (1) Non-STEMI (non-ST elevated myocardial infarction): The patient symptoms are concerning for unstable angina. While she does not appear to have any classic risk factors for cardiac disease outside of a remote history of tobacco use, her symptoms are concerning. The fact that she has chest pain after eating a meal exacerbated by activity is highly suggestive of coronary insufficiency. I suppose it is possible that she has a gastro- intestinal malady. However, she does not report symptoms of odynophagia or problems with eating. Her symptoms appear to develop sometime after her meal. Her EKG is abnormal although not indicative of an acute event. She does not have symptoms at rest. She did not have symptoms until a few days ago suggesting an unstable process. Her biomarkers are abnormal at the time of her admission. Based on her symptoms and objective findings it would seem reasonable to proceed urgently to the cardiac catheterization suite. I did describe the risks benefits and alternatives of the cardiac catheterization with the patient. She is willing to proceed. Present on Admission?: Yes History of Present Illness Reason for Consultation: Chest pain, NSTEMI Requesting Physician: Rober Attending Physician: Sixto Farris MD History of Present Illness The patient is a 49-year-old woman without a known history of cardiac disease who recently has been experiencing symptoms of chest pain and vomiting. Patient states that approximately 5 days ago she began to experience symptoms of chest discomfort after eating. This would tend to happen perhaps 15 to 20 minutes after eating a meal. Symptoms are described as substernal and fairly severe in nature. The symptoms are made worse with any activity. Patient generally experience nausea and vomiting and after vomiting would have some relief. Relief generally took place 30 to 40 minutes later. She did not have symptoms at rest without eating. She does have some steps at work and today was ascending the stairs at work when she again had similar symptoms. Unfortunately, her symptoms did not immediately resolve when she drove herself to the emergency room. She appears to have been given nitroglycerin with some relief of her symptoms. At the time of the interview the patient is not currently having chest pain. She does not currently have nausea. She has not vomited. In general she is a fairly sedentary individual who does not engage in routine exercise. She does walk her dog regularly and generally does not have symptoms of chest discomfort or limiting dyspnea. Recently she has not been walking her dog because she gets home too late at night and it is dark outside. Normally she can ascend stairs at work without symptoms. Allergies Allergy/AdvReac Type Severity Reaction Status Date / Time TOPICAL IODINE Allergy Intermediate "SKIN Uncoded 10/12/19 15:32 BLISTERS" Home Medications Home Medications Medication Instructions Recorded Confirmed Type NEW LIFE FORMULA 2 cap PO DAILY #0 07/31/17 10/12/19 History acetaminophen 1,000 mg PO BID PRN 07/19/18 10/12/19 History naproxen 500 mg tablet 500 mg PO BID PRN #60 tab 10/03/19 10/12/19 Rx ascorbic acid (vitamin C) [Vitamin 500 mg PO DAILY 10/12/19 10/12/19 History C] cyanocobalamin (vitamin B-12) 250 mcg PO DAILY 10/12/19 10/12/19 History [Vitamin B-12] vitamin E 0 unit PO .Q3DAYS 10/12/19 10/12/19 History Patient History Medical History No acute medical problems No significant medical problems Surgical History No significant past surgical history Family History Other No pertinent family history in first degree relatives Social History Preferred Language: Faroese Feels Safe at Home: Yes Smoking Status: Never smoker Hx Substance Use: No Review of Systems Review of Systems: All systems reviewed & are unremarkable except as noted in HPI & below She denied any other recent illnesses. She states she can swallow food just fine. She does not have any pain with swallowing. Food does not appear to get stuck with swallowing. She does not have associated back pain. Physical Exam Physical Exam: She is alert and oriented x3. Mood affect appear normal. She answered all questions appropriately. Obese HEENT: Sclerae are anicteric. Pupils are equal and reactive to light and accommodation. Extraocular movements were intact. Neuro: Cranial nerves intact Neck: Examination of the submandibular region did not reveal any significant lymphadenopathy. Carotids are palpable bilaterally and free of bruits on auscultation. There was no evidence of jugular venous distention. The thyroid was not enlarged. Lungs: Lungs are clear to auscultation bilaterally. There are no rales wheezes or rhonchi. She has normal respiratory effort without use of accessory muscles. There is normal pulmonary excursion. Cardiac: The rhythm was regular. S1 and S2 were normal. There are no murmurs on examination. The PMI was not markedly displaced on palpation. Abdomen: The abdomen was soft and nontender. Extremities: Patient has bilateral radial pulses that are equal in intensity. There is no evidence cyanosis or clubbing. There was no evidence of significant peripheral edema bilaterally. Skin: There are no rashes noted on examination today. Results & Data Vital Signs (Past 12 Hours) Vital Signs Temp Pulse Pulse Resp BP BP Pulse Ox 10/12/19 15:31 102 H 20 97 10/12/19 14:30 80 21 158/93 H 98 10/12/19 14:03 96 10/12/19 13:34 87 28 H 144/91 H 96 10/12/19 13:04 36.5 C 95 H 18 169/109 H 97 Laboratory Results Abnormal Lab Results 10/12/19 10/12/19 10/12/19 13:36 13:36 13:36 WBC 9.28 RBC 4.29 Hgb 12.2 Hct 36.8 L MCV 85.8 MCH 28.4 MCHC 33.2 RDW Std Deviation 48.3 H RDW Coeff of Gloria 15.4 H Plt Count 337 MPV 8.7 Immature Gran % (Auto) 0.1 Neut % (Auto) 68.4 Lymph % (Auto) 22.3 [place] % (Auto) 6.7 Eos % (Auto) 2.2 Baso % (Auto) 0.3 Immature Gran # (Auto) 0.01 Neut # (Auto) 6.35 Lymph # (Auto) 2.07 [place] # (Auto) 0.62 H Eos # (Auto) 0.20 Baso # (Auto) 0.03 PT INR APTT PTT Ratio Sodium 139 Potassium 3.7 Chloride 107 Carbon Dioxide 24 Anion Gap 8.0 BUN 13 Creatinine 0.94 Est Cr Clr Drug Dosing 82.6 Est GFR ( Amer) 82.6 Est GFR (Non-Af Amer) 71.2 BUN/Creatinine Ratio 13.6 Glucose 106 H Calcium 9.2 Total Bilirubin 0.3 AST 30 ALT 61 Alkaline Phosphatase 79 Total Creatine Kinase 138 CK-MB (CK-2) 5.2 H CK/CKMB % Calc 3.8 H Troponin I 1.540 H* Total Protein 8.2 Albumin 3.8 Globulin 4.4 H Albumin/Globulin Ratio 0.9 Lipase 108 Urine Color Dark Yellow Urine Appearance Cloudy A Urine pH 5.0 Ur Specific [place] 1.034 H Urine Protein 1+ H Urine Glucose (UA) Negative Urine Ketones Trace H Urine Blood Negative Urine Nitrite Negative Urine Bilirubin Negative Urine Urobilinogen Negative Ur Leukocyte Esterase 1+ H Urine WBC (Auto) >30 H Urine RBC (Auto) 5-10 H U Hyaline Cast (Auto) 10-30 H U Epithel Cells (Auto) >30 H Urine Bacteria (Auto) 1+ H 10/12/19 13:36 WBC RBC Hgb Hct MCV MCH MCHC RDW Std Deviation RDW Coeff of Gloria Plt Count MPV Immature Gran % (Auto) Neut % (Auto) Lymph % (Auto) [place] % (Auto) Eos % (Auto) Baso % (Auto) Immature Gran # (Auto) Neut # (Auto) Lymph # (Auto) [place] # (Auto) Eos # (Auto) Baso # (Auto) PT 9.9 INR 1.0 APTT 25.8 PTT Ratio 1.0 Sodium Potassium Chloride Carbon Dioxide Anion Gap BUN Creatinine Est Cr Clr Drug Dosing Est GFR ( Amer) Est GFR (Non-Af Amer) BUN/Creatinine Ratio Glucose Calcium Total Bilirubin AST ALT Alkaline Phosphatase Total Creatine Kinase CK-MB (CK-2) CK/CKMB % Calc Troponin I Total Protein Albumin Globulin Albumin/Globulin Ratio Lipase Urine Color Urine Appearance Urine pH Ur Specific [place] Urine Protein Urine Glucose (UA) Urine Ketones Urine Blood Urine Nitrite Urine Bilirubin Urine Urobilinogen Ur Leukocyte Esterase Urine WBC (Auto) Urine RBC (Auto) U Hyaline Cast (Auto) U Epithel Cells (Auto) Urine Bacteria (Auto) Diagnostic Findings Chest x-ray obtained the time of admission did not reveal any acute cardiopulmonary process. ECG Additional Comments: EKG demonstrate normal sinus rhythm with evidence of old anterior infarct. PG Care Time/CCT Total # of Minutes Spent Total Time Spent with Patient: Total time spent is greater than 50% in coordination of care (as documented) at patient's floor/unit and/or counseling patient:
[2019-10-12] MEDS ORDERED: TICAGRELOR 90 MG TAB PO ONE (17:22)
--- NOTE | 2019-10-12 17:31 | Post Anesthesia Assessment ---
Date of Service October 12, 2019 Post Sedation Assessment Vital Signs Temp Pulse Pulse Resp BP BP Pulse Ox 10/12/19 15:31 102 H 20 97 10/12/19 14:30 80 21 158/93 H 98 10/12/19 14:03 96 10/12/19 13:34 87 28 H 144/91 H 96 10/12/19 13:04 97.7 F 95 H 18 169/109 H 97 Recovery Score Activity: Moves 4 extremities Respiration: Deep Breath/Cough Circulation: +/-20% PreAnes Value Consciousness: Fully Awake Oxygen Saturation: O2 needed for >90% Discharge Sedation Level of Care: Fast Track Phase II Post Sedation Plan On clinical assessment, the patient appears to have tolerated the sedation without complications. Patient is recovering as anticipated. Patient will continue to be monitored by nursing and may be discharged when sedation discharge criteria are met per below protocol. Upon Completions of procedure up to 15 minutes continue every 5 minute vital signs and the P.A.R. score; then discharge to a Phase I or Fast Track to Phase II per the following guidelines: * Discharge Patient to appropriate Phase II area if PAR is 8 or greater or return to pre- procedure baseline. The post - procedure orders will be as directed. * If PAR score is less than 8 or not return to pre-procedure baseline then patient will follow Phase I monitoring till PAR is reached for Phase II. The Phase I may be done in procedure room or may call to secure a Phase I area. * If naloxone or flumazenil are used for reversal, hold in Phase I for continued monitoring from when last reversal dose was given for a minimum of 60 minutes or longer pending the nurse and/or physician discretion of patient condition before discharge to Phase II. Please call the Sedation Physician to re-evaluate and complete post-note for discharge to Phase II area. Do NOT discharge from procedure sedation or Phase 1 until post- sedation evaluation note is complete by procedure /sedation MD Sedation Discharge Instructions to be given to the patient at discharge to home.
--- NOTE | 2019-10-12 17:46 | Cardiac Catheterization ---
ACC Data: Bobbin Stripper Cardiac Status Clinical evaluation leading to the procedure CAD Presenation: Non STEMI Anginal Classification: CCS IV Heart Failure: No Cardiogenic Shock within 24 Hours: No Cardiac Arrest within 24 Hours: No Imaging Studies Past 6 Months: No Stress Studies Past 6 Months: No Diagnostic Physicians Name: Sixto Evangelista MD Status: Elective Closure Device Percutaneous Entry Location: Radial Closure Device: Radial Band Recommendations: PCI without planned CABG PCI Indication: PCI for high risk Non-JAYASHREE Lesion Segment Name: mid RCA Culprit Artery: Yes Stenosis Prior to Rx (%): 95+ Chronic Total Occlusion: No IVUS: No FFR: No Pre-Procedure PATIENCE Flow: 3 Previously Treated Lesion: No Lesion Complexity: Non-High/Non-C Lesion Length (mm): 15 Thrombus Present: Yes Bifurcation Lesion: No Guidewire Across Lesion: Stenosis Post-Procedure (%): 0 Post-Procedure PATIENCE Flow: 3 Devices(s) Deployed: Yes Yes Lesion #2 Segment Name: proximal to mid LAD Culprit Artery: No Stenosis Prior to Rx (%): 99 Chronic Total Occlusion: Yes IVUS: No FFR: No Pre-Procedure PATIENCE Flow: 1 Previously Treated Lesion: No Lesion Complexity: High/C Lesion Length (mm): 40 Thrombus Present: No Bifurcation Lesion: Yes Guidewire Across Lesion: Yes Stenosis Post-Procedure (%): 0 Post-Procedure PATIENCE Flow: 3 Devices(s) Deployed: Yes Intraprocedure Events Significant Disection: No Perforation: No Cardiac Cath Procedure Full Procedure Date October 12, 2019 Pre-Procedure Diagnosis Pre-Procedure Diagnosis: Non STEMI AUC Score AUC Score: 8 Post-Procedure Diagnosis Post-Procedure Diagnosis: Severe CAD and Successful PCI Procedure(s) Performed Procedure(s) Performed: Coronary Angiography, Left Heart Cath and Drug Eluting Stent Director Executive Communications Sixto Evangelista MD Public Works Laborer(s) none Estimated Blood Loss Estimated Blood Loss: 5cc Medication(s) Medication(s): Fentanyl, Heparin, Lidocaine 1%, Nicardipine, Nitroglycerin and Versed Medication(s): ticagrelor Summary of Findings Indication: NSTEMI Access: 6 Fr right radial artery Catheters: JR4 guide, EBU 3.5 guide Findings: For full details of patient's coronary angiography please cath report dictated by Dr. Farris. Briefly, patient found to have severe multi-vessel disease including a 95+% stenosis involving the mid RCA and subtotal proximal to mid LAD occlusion with right to left collaterals. Decision to proceed with multivessel PCI. -- PCI -- Antithrombotic therapy: Heparin, ticagrelor Procedure: RCA cannulated with JR4 guide Pressurizer 50 wire passed across lesion into distal vessel Mid RCA lesion predilated with 2.5 compliant balloon Dilated lesion stented with 3.5 x 18 mm Cade drug-eluting Stent post-dilated with 3.75 noncompliant balloon IC vasodilators administered for spasm Post procedure PATIENCE 3 flow, stent well expanded with minimal residual stenosis and no apparent cardiac complications. Left main cannulated with EBU 3.5 guide Pressurizer 50 wire passed across proximal lesion into first diagonal With the aid of a 2.0 balloon for support whisper wire passed across subtotal occlusion into distal LAD Proximal/mid LAD dilated with 2.0 balloon Proximal to mid LAD stented with 3.0 x 34 mm Cade drug-eluting stent First diagonal rewired with mapping pilot 50 wire Stent postdilated with 3.5 NC Second drug-eluting stent placed to mid LAD overlapping distal aspect of first stent for residual stenosis (2.75 x 18 Weed). Ostium of first diagonal/stent struts dilated with 2.0 balloon IC vasodilators administered for spasm Post procedure PATIENCE-3 flow, stents well expanded with minimal residual stenosis and no apparent edge complications Arterial Closure: TR band Summary: 1. Successful PCI of mid RCA with single drug-eluting stent (3.5 x 18 mm Cade). 2. Successful PCI of proximal to mid LAD with 2 overlapping drug-eluting stents (3.0 x 34, 2.75 x 18 Cade; proximal stent postdilated with 3.5 NC). -PTCA of ostium of first diagonal with 2.0 balloon Recommendations: To PCU for continued monitoring Loaded with ticagrelor 180 mg in catheter Continue dual-antiplatelet therapy for at least one year Continue statin, and ASCVD risk factor modification Consult cardiac Rehab Hemodynamics Rest Ao:: -- Final Ao: 112/57 LV: -- Recommendations Recommendations: PCI without planned CABG Specimens Specimens: None Radiation Exposure (mGy) 4693 Contrast (mls) 220 Fluids (cc crystalloids) Fluids (cc crystalloids): 125 Drains Drains: none Anesthesia moderate Procedural Complication(s) None Disposition PCU I attest to the content of the Intraoperative Record and any orders documented therein. Any exceptions are noted below. [facility] Card Cath Procedure Codes Moderate Sedation Procedure 1: Sedation/Anesthesia: 78072 Mod Sedation by a different physician ;Init15 Min Child Age 5&Up Stenting Procedure 1: Cardiovascular Stent Procedures: 34933 Perc transluminal revascularization of chronic total occlusion, Procedure 2: Cardiovascular Stent Procedures: 56149 Ea addl branch of a major coronary artery PG Care Time/CCT Total # of Minutes Spent Total Time Spent with Patient: Total time spent is greater than 50% in coordination of care (as documented) at patient's floor/unit and/or counseling patient:
[2019-10-12] MEDS ORDERED: SODIUM CHLORIDE 0.9% 1000ML 1,000 ML IV SCH (18:00)
--- NOTE | 2019-10-12 19:33 | History & Physical Report ---
Date of Service October 12, 2019 Assessment & Plan (1) Non-STEMI (non-ST elevated myocardial infarction): Emergent cardiac cath with PCI to mid RCA and mid LAD. Chest pain free post-cath Aspirin 81mg daily Lipitor 80mg daily lisinopril 5mg daily metoprolol 25mg BID ticagrelor 90mg BID Cardiac rehab Cardiology following. History of Present Illness 49 y/o female presented to the ED with a 1 week history of exertional and post- prandial non-radiating chest pain. The pain was 5/10. She had an elevated trop to 1.54. Patient underwent an emergent cardiac cath with stenting to mid RCA and mid LAD. I am seeing the patient in her room post-cath. She is feeling well. No chest pain, SOB, N/V/D, or F/C. Primary Care Provider: Lashaun Denton MD Allergies Allergy/AdvReac Type Severity Reaction Status Date / Time TOPICAL IODINE Allergy Intermediate "SKIN Uncoded 10/12/19 15:32 BLISTERS" Home Medications Home Medications Medication Instructions Recorded Confirmed Type NEW LIFE FORMULA 2 cap PO DAILY #0 07/31/17 10/12/19 History acetaminophen 1,000 mg PO BID PRN 07/19/18 10/12/19 History naproxen 500 mg tablet 500 mg PO BID PRN #60 tab 10/03/19 10/12/19 Rx ascorbic acid (vitamin C) [Vitamin 500 mg PO DAILY 10/12/19 10/12/19 History C] cyanocobalamin (vitamin B-12) 250 mcg PO DAILY 10/12/19 10/12/19 History [Vitamin B-12] vitamin E 0 unit PO .Q3DAYS 10/12/19 10/12/19 History Past Med/Surg History Medical History No acute medical problems No significant medical problems Surgical History No significant past surgical history Family History Other No pertinent family history in first degree relatives Social History Preferred Language: Albanian Financial Report Service Sales Agent Required: No Beliefs That Will Affect Care: None Current Living Situation: Family Other Information That Helps Us Care for You: No Feels Safe at Home: Yes Smoking Status: Former smoker Hx Alcohol Use: No Hx Substance Use: No Review of Systems Review of Systems: Constitutional- no fever; no weight loss Eyes- no acute visual changes ENT- no sinus drainage; no pharyngitis Pulmonary- no cough, no wheezing, no shortness of breath Cardiac- As in HPI GI- no nausea, no vomiting, no diarrhea, no melena, no hematochezia - no dysuria, no hematuria Musculoskeletal- no arthralgias, no myalgias Derm- no rashes, no new skin lesions, no changing skin lesions Hematologic- no unusual bruising, no unusual bleeding Lymphatics- no adenopathy Endocrine- no polyuria or polydipsia; no heat or cold intolerance Neuro- no headaches, no focal neurologic symptoms Psych- no anxiety, no depression Physical Exam Physical Exam: General- adult female, NAD Head- atraumatic Eyes- PERRL, EOMI, anicteric ENT- oropharynx clear Neck- supple, no JVD, no adenopathy, no thyromegaly. Lungs- CTA b/l no R/R/W. Heart- regular rhythm; no murmur, no gallop, no rub appreciated Abdomen- normal bowel sounds, soft, nontender. Extremities- no pretibial edema, no calf tenderness; peripheral pulses intact Neuro- alert, oriented x 3; PERRL, EOMI, receivable executive II-XII grossly intact, non-focal. Skin- warm & dry Results & Data Vital Signs (Past 12 Hours) Vital Signs Temp Pulse Pulse Resp BP BP Pulse Ox 10/12/19 18:45 76 18 129/84 95 10/12/19 18:32 85 18 135/71 96 10/12/19 18:19 36.4 C L 75 18 134/81 97 10/12/19 18:17 73 18 144/95 H 98 10/12/19 18:00 83 22 148/89 H 98 10/12/19 17:47 36.4 C L 75 18 134/81 97 10/12/19 15:31 102 H 20 97 10/12/19 14:30 80 21 158/93 H 98 10/12/19 14:03 96 10/12/19 13:34 87 28 H 144/91 H 96 10/12/19 13:04 36.5 C 95 H 18 169/109 H 97 Laboratory Results Laboratory Results WBC 9.28 K/uL (4.8-10.8) 10/12/19 13:36 RBC 4.29 M/uL (4.2-5.4) 10/12/19 13:36 Hgb 12.2 g/dL (12.0-16.0) 10/12/19 13:36 Hct 36.8 % (37-47) L 10/12/19 13:36 MCV 85.8 fL (80-100) 10/12/19 13:36 MCH 28.4 pg (25-34) 10/12/19 13:36 MCHC 33.2 g/dL (32-36) 10/12/19 13:36 RDW Std Deviation 48.3 fL (36.4-46.3) H 10/12/19 13:36 RDW Coeff of Gloria 15.4 % (11.5-14.5) H 10/12/19 13:36 Plt Count 337 K/uL (130-400) 10/12/19 13:36 MPV 8.7 fL (7.4-10.4) 10/12/19 13:36 Immature Gran % (Auto) 0.1 % 10/12/19 13:36 Neut % (Auto) 68.4 % 10/12/19 13:36 Lymph % (Auto) 22.3 % 10/12/19 13:36 [place] % (Auto) 6.7 % 10/12/19 13:36 Eos % (Auto) 2.2 % 10/12/19 13:36 Baso % (Auto) 0.3 % 10/12/19 13:36 Immature Gran # (Auto) 0.01 K/uL (0.00-0.02) 10/12/19 13:36 Neut # (Auto) 6.35 K/uL (1.4-6.5) 10/12/19 13:36 Lymph # (Auto) 2.07 K/uL (1.2-3.4) 10/12/19 13:36 [place] # (Auto) 0.62 K/uL (0.11-0.59) H 10/12/19 13:36 Eos # (Auto) 0.20 K/uL (0-0.5) 10/12/19 13:36 Baso # (Auto) 0.03 K/uL (0-0.2) 10/12/19 13:36 PT 9.9 Seconds (9.0-12.0) 10/12/19 13:36 INR 1.0 (0.9-1.1) 10/12/19 13:36 APTT 25.8 Seconds (21.0-31.0) 10/12/19 13:36 PTT Ratio 1.0 10/12/19 13:36 Sodium 139 mmol/L (136-145) 10/12/19 13:36 Potassium 3.7 mmol/L (3.5-5.1) 10/12/19 13:36 Chloride 107 mmol/L (98-107) 10/12/19 13:36 Carbon Dioxide 24 mmol/L (21-32) 10/12/19 13:36 Anion Gap 8.0 (3-11) 10/12/19 13:36 BUN 13 mg/dl (7-18) 10/12/19 13:36 Creatinine 0.94 mg/dl (0.6-1.2) 10/12/19 13:36 Est Cr Clr Drug Dosing 82.6 ml/min 10/12/19 13:36 Est GFR ( Amer) 82.6 10/12/19 13:36 Est GFR (Non-Af Amer) 71.2 10/12/19 13:36 BUN/Creatinine Ratio 13.6 (10-20) 10/12/19 13:36 Glucose 106 mg/dl (70-99) H 10/12/19 13:36 Calcium 9.2 mg/dl (8.5-10.1) 10/12/19 13:36 Total Bilirubin 0.3 mg/dl (0.2-1) 10/12/19 13:36 AST 30 U/L (15-37) 10/12/19 13:36 ALT 61 U/L (12-78) 10/12/19 13:36 Alkaline Phosphatase 79 U/L (45-117) 10/12/19 13:36 Total Creatine Kinase 138 U/L (26-192) 10/12/19 13:36 CK-MB (CK-2) 5.2 ng/ml (0.5-3.6) H 10/12/19 13:36 CK/CKMB % Calc 3.8 (0-3.0) H 10/12/19 13:36 Troponin I 1.540 ng/ml (0-0.045) H* 10/12/19 13:36 Total Protein 8.2 gm/dl (6.4-8.2) 10/12/19 13:36 Albumin 3.8 gm/dl (3.4-5.0) 10/12/19 13:36 Globulin 4.4 gm/dl (2.5-4.0) H 10/12/19 13:36 Albumin/Globulin Ratio 0.9 (0.9-2) 10/12/19 13:36 Lipase 108 U/L (73-393) 10/12/19 13:36 Urine Color Dark Yellow 10/12/19 13:36 Urine Appearance Cloudy (Clear) A 10/12/19 13:36 Urine pH 5.0 (4.5-7.5) 10/12/19 13:36 Ur Specific [place] 1.034 (1.000-1.030) H 10/12/19 13:36 Urine Protein 1+ (Negative) H 10/12/19 13:36 Urine Glucose (UA) Negative (Negative) 10/12/19 13:36 Urine Ketones Trace (Negative) H 10/12/19 13:36 Urine Blood Negative (Negative) 10/12/19 13:36 Urine Nitrite Negative (Negative) 10/12/19 13:36 Urine Bilirubin Negative (Negative) 10/12/19 13:36 Urine Urobilinogen Negative (Negative) 10/12/19 13:36 Ur Leukocyte Esterase 1+ (Negative) H 10/12/19 13:36 Urine WBC (Auto) >30 /hpf (0-5) H 10/12/19 13:36 Urine RBC (Auto) 5-10 /hpf (0-4) H 10/12/19 13:36 U Hyaline Cast (Auto) 10-30 /lpf (0-5) H 10/12/19 13:36 U Epithel Cells (Auto) >30 /lpf (0-5) H 10/12/19 13:36 Urine Bacteria (Auto) 1+ (Negative) H 10/12/19 13:36 Code Status & VTE Plan VTE Prophylaxis Plan VTE Prophylaxis will be ordered: Yes PG Care Time/CCT Total # of Minutes Spent Total Time Spent: 50 Total Time Spent with Patient: Total time spent is greater than 50% in coordination of care (as documented) at patient's floor/unit and/or counseling patient:
[2019-10-12] MEDS: METOPROLOL TARTRATE 25 MG TAB PO SCH (20:36)
[2019-10-12] MEDS: TICAGRELOR 90 MG TAB PO SCH (20:36)
[2019-10-13] MEDS: lisinopriL 5 MG TAB PO SCH (08:14)
[2019-10-13] MEDS: ATORVASTATIN 40 MG TAB PO SCH (08:14)
[2019-10-13] MEDS: ASPIRIN 81 MG ECTAB PO SCH (08:14)
[2019-10-13] MEDS: TICAGRELOR 90 MG TAB PO SCH ×2 (08:14→20:13)
[2019-10-13] MEDS: METOPROLOL TARTRATE 25 MG TAB PO SCH ×2 (08:14→20:13)
[2019-10-13] MEDS ORDERED: PERFLUTREN LIPID MICROSPHERE (DEFINITY) IV ONE (11:13)
[2019-10-13 12:03] LABS: BUN Creatinine Ratio 14.3 (10-20); Calcium 9.3 mg/dl (8.5-10.1); Creatinine Clr Calc Pharmacy 98.5 ml/min; Est GFR (African American) 103.5; Est GFR (Non-African American) 89.3; Potassium 3.9 mmol/L (3.5-5.1)
--- NOTE | 2019-10-13 17:34 | Cardiology Progress Note ---
Date of Service October 13, 2019 Assessment & Plan (1) Non-STEMI (non-ST elevated myocardial infarction): Clinically she is doing well post PCI to both the left anterior descending and right coronary arteries. No evident complication of recurrent angina, heart failure or electrical instability. She seems to be tolerating her medical regimen. Given the extent of her intervention, the findings on her echocardiography and the severity of her symptoms yesterday I thought it would be prudent to monitor her for 1 more night. We will continue her current medical therapy to include dual anti-platelet therapy, beta blockade, high-dose atorvastatin and lisinopril. Plan for discharge in the morning. Subjective This point the patient was feeling well. She denies any recurrent symptoms of chest discomfort. She is able to eat a meal last night and breakfast this morning without her usual symptoms of chest discomfort or vomiting. She has been ambulatory to the bathroom. She is anxious for discharge. Review of Systems Review of Systems: Per HPI. No breathing difficulty. No pain in the right hand. Physical Exam Physical Exam: She is alert and oriented x3. Mood affect appear normal. She answered all questions appropriately. HEENT: Sclerae are anicteric. Pupils are equal and reactive to light and accommodation. Extraocular movements were intact. Neuro: Cranial nerves intact. Lungs: Lungs are clear to auscultation bilaterally. There are no rales wheezes or rhonchi. She has normal respiratory effort without use of accessory muscles. There is normal pulmonary excursion. Cardiac: The rhythm was regular. S1 and S2 were normal. There are no murmurs on examination. The PMI was not markedly displaced on palpation. Extremities: Patient has bilateral radial pulses that are equal in intensity. There is no evidence cyanosis or clubbing. There was no evidence of significant peripheral edema bilaterally. Good perfusion of the right hand Skin: There are no rashes noted on examination today. Results & Data Vital Signs (Past 12 Hours) Vital Signs Temp Pulse Pulse Resp BP Pulse Ox 10/13/19 16:00 75 10/13/19 15:22 36.7 C 71 18 113/76 95 10/13/19 11:56 36.4 C L 71 18 123/77 95 10/13/19 07:54 36.8 C 80 18 121/82 94 10/13/19 07:50 63 Laboratory Results Abnormal Lab Results 10/13/19 10/13/19 11:22 14:04 Sodium 140 Potassium 3.9 Chloride 109 H Carbon Dioxide 26 Anion Gap 5.0 BUN 11 Creatinine 0.78 Est Cr Clr Drug Dosing 98.5 Est GFR ( Amer) 103.5 Est GFR (Non-Af Amer) 89.3 BUN/Creatinine Ratio 14.3 Glucose 95 Calcium 9.3 Troponin I 3.850 H* Diagnostic Findings Echocardiogram performed today revealed mildly reduced LV systolic function with regional wall motion abnormalities involving the apex. PG Care Time/CCT Total # of Minutes Spent Total Time Spent with Patient: Total time spent is greater than 50% in coordination of care (as documented) at patient's floor/unit and/or counseling patient:
[2019-10-13] MEDS ORDERED: ACETAMINOPHEN 325 MG TAB PO PRN (21:52)
--- NOTE | 2019-10-13 21:57 | Hospitalist Progress Note ---
Date of Service October 13, 2019 Assessment & Plan (1) Non-STEMI (non-ST elevated myocardial infarction): Emergent cardiac cath with PCI to mid RCA and mid LAD. Chest pain free post-cath Aspirin 81mg daily Lipitor 80mg daily lisinopril 5mg daily metoprolol 25mg BID ticagrelor 90mg BID Cardiac rehab Cardiology following. Patient tolerating above dose (2) Acute systolic (congestive) heart failure: Echo shows decreased function of Left ventricle. will continue patient on bettye inhibitor and will place long acting beta saranya at discharge. will recommend followup echo in one month to re assess LV function Subjective Patient reports feeling well. Patient has no new complaints. Review of Systems Review of Systems: Constitutional- no fever; no weight loss Eyes- no acute visual changes ENT- no sinus drainage; no pharyngitis Pulmonary- no cough, no wheezing, no shortness of breath Cardiac- As in HPI GI- no nausea, no vomiting, no diarrhea, no melena, no hematochezia - no dysuria, no hematuria Musculoskeletal- no arthralgias, no myalgias Derm- no rashes, no new skin lesions, no changing skin lesions Hematologic- no unusual bruising, no unusual bleeding Lymphatics- no adenopathy Endocrine- no polyuria or polydipsia; no heat or cold intolerance Neuro- no headaches, no focal neurologic symptoms Psych- no anxiety, no depression Physical Exam Physical Exam: General- adult female, NAD Head- atraumatic Eyes- PERRL, EOMI, anicteric ENT- oropharynx clear Neck- supple, no JVD, no adenopathy, no thyromegaly. Lungs- CTA b/l no R/R/W. Heart- regular rhythm; no murmur, no gallop, no rub appreciated Abdomen- normal bowel sounds, soft, nontender. 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 Skin- warm & dry Results & Data Vital Signs (Past 12 Hours) Vital Signs Temp Pulse Pulse Resp BP Pulse Ox 10/13/19 18:58 37.0 C 82 16 103/76 95 10/13/19 16:00 75 10/13/19 15:22 36.7 C 71 18 113/76 95 10/13/19 11:56 36.4 C L 71 18 123/77 95 PG Care Time/CCT Total # of Minutes Spent Total Time Spent with Patient: Total time spent is greater than 50% in coordination of care (as documented) at patient's floor/unit and/or counseling patient:
[2019-10-14] MEDS: METOPROLOL TARTRATE 25 MG TAB PO SCH (07:40)
[2019-10-14] MEDS: TICAGRELOR 90 MG TAB PO SCH (07:40)
[2019-10-14] MEDS: ASPIRIN 81 MG ECTAB PO SCH (07:40)
[2019-10-14] MEDS: ATORVASTATIN 40 MG TAB PO SCH (07:40)
[2019-10-14] MEDS: lisinopriL 5 MG TAB PO SCH (07:41)
[2019-10-14] MEDS ORDERED: METOPROLOL SUCC 50MG EXT REL TAB PO SCH (21:00)
--- NOTE | 2019-10-17 10:46 | XCELERA ---
[id number] \\[email or web address]\[id number]
--- NOTE | 2019-10-17 20:32 | Discharge Summary ---
Date of Service October 14, 2019 Admission HPI Per Admitting Provider 49 y/o female presented to the ED with a 1 week history of exertional and post- prandial non-radiating chest pain. The pain was 5/10. She had an elevated trop to 1.54. Patient underwent an emergent cardiac cath with stenting to mid RCA and mid LAD. I am seeing the patient in her room post-cath. She is feeling well. No chest pain, SOB, N/V/D, or F/C. Principal Diagnosis NSTEMI Discharge Exam General- adult female, NAD Head- atraumatic Eyes- PERRL, EOMI, anicteric ENT- oropharynx clear Neck- supple, no JVD, no adenopathy, no thyromegaly. Lungs- CTA b/l no R/R/W. Heart- regular rhythm; no murmur, no gallop, no rub appreciated Abdomen- normal bowel sounds, soft, nontender. 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 Skin- warm & dry Discharge Data Allergies Allergy/AdvReac Type Severity Reaction Status Date / Time TOPICAL IODINE Allergy Intermediate "SKIN Uncoded 10/12/19 15:32 BLISTERS" Consultations 10/12/19 14:20 ED Decision to Admit Stat 10/12/19 14:25 Consult Cardiology Stat 10/12/19 17:48 Consult Cardiac Rehabilitation Routine Procedures Performed Operation Date: 10/12/19 13:30 Actual Procedures s Cath, Left with Cors and Vent - Elmer Farris MD s Cineradiography w/Routine Exam - Elmer Farris MD p Drug Eluting Stent SGl Vessel(Right) - Elmer Evangelista MD s Drug Eluting Stent each ADDTL Vessel - Elmer Evangelista MD s POBA SGL Vessel - Elmer Evangelista MD Ordered Studies 10/12/19 15:17 CL Cath Imgs for PACS use only Stat Hospital Course (1) Non-STEMI (non-ST elevated myocardial infarction): Emergent cardiac cath with PCI to mid RCA and mid LAD. Chest pain free post-cath Aspirin 81mg daily Lipitor 80mg daily lisinopril 5mg daily metoprolol 25mg BID ticagrelor 90mg BID Cardiac rehab Cardiology following. Patient tolerating above dose On day prior to discharge: cardio recommended the following: Clinically she is doing well post PCI to both the left anterior descending and right coronary arteries. No evident complication of recurrent angina, heart failure or electrical instability. She seems to be tolerating her medical regimen. Given the extent of her intervention, the findings on her echocardiography and the severity of her symptoms yesterday I thought it would be prudent to monitor her for 1 more night. We will continue her current medical therapy to include dual anti-platelet therapy, beta blockade, high-dose atorvastatin and lisinopril. (2) Acute systolic (congestive) heart failure: Echo shows decreased function of Left ventricle. will continue patient on bettye inhibitor and will place long acting beta saranya at discharge. will recommend followup echo in one month to re assess LV function Total Time Total Time Spent Total Time Spent (In Minutes): 33 Discharge Plan Discharge Items Reason For Visit: CHEST PAIN Discharge Diagnosis: NSTEMI Activity: Resume your previous activity Non-emergency contact: Primary Care Provider Call non-emergency contact if: you have any medication questions Follow-up/Referrals: Lashaun Denton MD [Primary Care Provider] - 10/18/19 2:00 pm (Please, follow up at Dr. Denton's office with her associate, Yamila CASTRO, on ThursdayOctober 18 at 2:00 pm. *If you need to change this appointment, call the office at [phone].) Elmer Evangelista MD [Physician] - 10/28/19 3:15 pm (Please, follow up at [facility] Office with Dr. Evangelista on ThursdayOctober 28 at 3:15 pm. *This office is located in [address] of [facility], next to this [facility]. If you need to change this appointment, call the office at [phone].) Diet: Heart Healthy, Low Fat and Low Sodium (2gm) Addtl Attending Provider Instructions: Call your Primary Care doctor if any of the following symptoms or problems start or get worse: * Shortness of breath or difficulty breathing * Wake up at night short of breath * Chest pain * Cough * Swelling of your hands, feet, or legs * More fatigued or tired with your normal activity * Palpitations - sudden fast heart beats WEIGHT * Weigh yourself every morning after using the bathroom. * Use the same scale. * Wear the same amount of clothing. * Write your weight down on a chart. * Call your Primary Care doctor if you gain more than 2-3 pounds in 1-2 days. MEDICATIONS * Use this discharge instruction sheet for medication instructions. * Take your medications at the time your doctor ordered. * Do not skip a dose of your medicines. * If you miss a dose of medicine, take it as soon as possible, but DO NOT DOUBLE A DOSE. * Read your medicine information when you get home. * Know all of the side effects of your medicine. If in doubt, ask your pharmacist * Call your Primary Care doctor's office if you have any side effects. * Be sure all of your doctors know what medicine and herbs you take (including cold, flu, and herbal medicine). Take the following with you to your follow-up doctor appointments: * Weight Chart * Medication List * List of questions Do not drink excessive alcohol, beer or wine. Pending Studies at Discharge: No Stand-Alone Forms: Call Back Authorization, [facility], Opioid Pain Management, Work/School Release (Inpt), Smoking Cessation Medications and DC Order Prescriptions: New atorvastatin 40 mg Tablet 80 mg PO QAM Qty: 30 RF: 0 metoprolol succinate 50 mg Tablet Extended Release 24 Hr 50 mg PO QPM Qty: 30 RF: 0 aspirin [Ecotrin Low Strength] 81 mg Tablet,Delayed Release (Dr/Ec) 81 mg PO QAM Qty: 30 RF: 0 lisinopril [Zestril] 5 mg Tablet 5 mg PO QAM Qty: 30 RF: 0 clopidogrel [Plavix] 75 mg tablet 75 mg PO QPM Qty: 30 RF: 0 Continued cyanocobalamin (vitamin B-12) [Vitamin B-12] 250 mcg Tablet 250 mcg PO DAILY RF: 0 ascorbic acid (vitamin C) [Vitamin C] 500 mg Tablet 500 mg PO DAILY RF: 0 acetaminophen 500 mg Tablet 1,000 mg PO BID PRN (Reason: Pain) RF: 0 Discontinued naproxen 500 mg tablet 500 mg PO BID PRN (Reason: pain) Qty: 60 RF: 2 No Action vitamin E 1,000 unit capsule See Rx Instructions PO Q3D RF: 0 Krames/Other Patient Handouts: Stent Coronary, Catheterization Cardiac, Heart Attack Warning Signs Admission Data Admit Date/Time: 10/13/19 15:44 Attending Provider: Johan Leonard Admit Provider: Zandra Leung Primary Care Provider: Lashaun Denton Other Providers: Zandra Leung ; Elmer Farris Other Interventions: Discharge Summary Assessment (RN) Last Done: 10/14/19 09:15 DC Date/Time DO NOT enter until pt leaves facility: 10/14/19 10:22
== END 2019-10-14 10:22 | disposition home or self-care (01) | DRG 246 ==
LOC: ED 12:54 → 2S 15:26 → ASU 15:26 → SUATTDRO 15:53 → UNDODISIN 10-14 09:45

== ENCOUNTER 2019-11-03 22:34 | Observation (INO) ==
[2019-11-03 23:39] LABS: Basophils # (auto) 0.03 K/uL (0-0.2); Basophils % (auto) 0.3 %; Eosinophils # (auto) 0.81 K/uL (0-0.5); Eosinophils % (auto) 8.6 %; Hemoglobin 11.6 g/dL (12.0-16.0); Immature Granulocytes # (auto) 0.01 K/uL (0.00-0.02); Immature Granulocytes % (auto) 0.1 %; Lymphocytes # (auto) 0.77 K/uL (1.2-3.4); Lymphocytes % (auto) 8.2 %; Mean Corpuscular Hemoglobin 28.4 pg (25-34); Mean Corpuscular Hgb Conc 33.1 g/dL (32-36); Mean Corpuscular Volume 85.6 fL (80-100); Mean Platelet Volume 9.3 fL (7.4-10.4); Monocytes # (auto) 0.61 K/uL (0.11-0.59); Monocytes % (auto) 6.5 %; Neutrophils # (auto) 7.21 K/uL (1.4-6.5); Neutrophils % (auto) 76.3 %; Platelet Count 254 K/uL (130-400); RDW Coefficient of Variation 14.6 % (11.5-14.5); RDW Standard Deviation 45.5 fL (36.4-46.3); Red Blood Count 4.09 M/uL (4.2-5.4); White Blood Count 9.44 K/uL (4.8-10.8)
[2019-11-03 23:55] LABS: Alanine Aminotransferase 32 U/L (12-78); Albumin Level 3.4 gm/dl (3.4-5.0); Aspartate Aminotransferase 27 U/L (15-37); BUN Creatinine Ratio 8.6 (10-20); Blood Urea Nitrogen 7 mg/dl (7-18); Calcium 8.8 mg/dl (8.5-10.1); Carbon Dioxide 26 mmol/L (21-32); Chloride 109 mmol/L (98-107); Creatinine Clr Calc Pharmacy 96.9 ml/min; Est GFR (African American) 98.8; Est GFR (Non-African American) 85.3; Glucose 106 mg/dl (70-99); Lipase 92 U/L (73-393); Potassium 3.8 mmol/L (3.5-5.1); Sodium 141 mmol/L (136-145)
[2019-11-03 23:56] LABS: D Dimer 900 ug/L FEU (0-500)
[2019-11-04] LABS: Albumin Globulin Ratio 0.9 (0.9-2); Alkaline Phosphatase 101 U/L (45-117); Bilirubin,Total 0.4 mg/dl (0.2-1); Globulin 3.9 gm/dl (2.5-4.0); Total Protein 7.3 gm/dl (6.4-8.2); Troponin I < 0.015 ng/ml (0-0.045)
[2019-11-04] MEDS ORDERED: OPTIRAY 320 125ml IV PRN (01:11)
[2019-11-04 01:19] LABS: Appearance Urine Clear (Clear); Bacteria Urine Automated 1+ (Negative); Bilirubin Urine Negative (Negative); Blood Urine Negative (Negative); Color Urine Yellow; Epithelial Cell Urine Auto >30 /lpf (0-5); Glucose Urine UA Negative (Negative); Ketones Urine 1+ (Negative); Leukocyte Esterase Urine 2+ (Negative); Nitrite Urine Negative (Negative); Protein Urine Negative (Negative); RBC Urine Automated 0-4 /hpf (0-4); Specific Gravity Urine 1.033 (1.000-1.030); Urobilinogen Urine Negative (Negative); WBC Urine Automated >30 /hpf (0-5); pH Urine 6.5 (4.5-7.5)
--- NOTE | 2019-11-04 01:54 | Emergency Department Note ---
Entered by Dahiana Palmer acting as a scribe for Jessica Belcher DO History of Present Illness General Chief complaint: Chest Pain Stated complaint: CHEST PAIN,FEVER 101,VOMITING Time Seen by Provider: 11/03/19 23:04 Source: patient and family (mother) History of Present Illness Onset (ago): hour(s) (today ) Location: chest ("heart doesn't feel right" ) Maximum Pain Intensity: 10 Associated symptoms: + cough (constant at nighttime ), + fever/chills (101 degrees [employer]), + nausea/vomiting (vomit 1x at 9:15PM today ) and + other (diarrhea, lethargy, and irritability 1 day ago ); no chest pain and no shortness of breath The patient is a 49 year old female with a history of Non-STEMI (10/12/19), cardiac stent placement, multi-vessel coronary artery stenosis, and acute systolic CHF who presents to the Emergency Room with complaints of chest pain and vomiting. The patient states that 1 day ago she began to feel lethargic and experienced mild diarrhea x 1. Today at 9:15PM she began experiencing nausea and vomiting and reports that her "heart does not feel right". She explains that her symptoms in the last 2 days have felt similar to how she felt before her recent SD. Patient states prior to vomiting 5 times, she developed a squeezing in her central and left chest which was similar to the chest pain she had during the heart attack. Patient denies any blood in the vomit. Additionally, her mother reports that she had a fever tonight of 101 degrees. The patient did not take anything for her fever [employer]. For dinner, she had left over chicken over waffles with stuffing and yams. Her mother ate the same thing and did not become sick. She is not concerned for spoiled food and states that she has not had any recent sickness exposure. Currently, she admits that her nausea is relieved and that her heart feels fine now. Of note, the mother reports that the patient has had a constant cough at night. She denies chest pain and shortness of breath. The patient and her mother offer no additional concerns at this time. On review of EMR, patient came in with an NSTEMI approximately 3 weeks ago and was found to have multivessel coronary artery disease and subsequently received 3 stents. Home Medications Home Medications Medication Instructions Recorded Confirmed Type acetaminophen 1,000 mg PO BID PRN 07/19/18 11/03/19 History ascorbic acid (vitamin C) [Vitamin 500 mg PO DAILY 10/12/19 11/03/19 History C] cyanocobalamin (vitamin B-12) 250 mcg PO DAILY 10/12/19 11/03/19 History [Vitamin B-12] aspirin [Ecotrin Low Strength] 81 mg PO QAM #30 tab 10/14/19 11/03/19 Rx atorvastatin 80 mg tablet 80 mg PO QAM #30 tab 10/18/19 11/03/19 Rx clopidogrel 75 mg tablet 75 mg PO QPM #30 tab 10/18/19 11/03/19 Rx lisinopril 5 mg tablet 5 mg PO QAM #30 tab 10/18/19 11/03/19 Rx metoprolol succinate 50 mg 50 mg PO QPM #30 tab 10/18/19 11/03/19 Rx tablet,extended release 24 hr A & R--Otc 1 tab PO DAILY 11/03/19 11/03/19 History New Life Formula Vits 1 tab PO DAILY 11/03/19 11/03/19 History Allergies Allergy/AdvReac Type Severity Reaction Status Date / Time TOPICAL IODINE Allergy Intermediate "SKIN Uncoded 11/03/19 22:58 BLISTERS" Past Med/Surg History Medical History Acute systolic (congestive) heart failure Multi-vessel coronary artery stenosis Non-STEMI (non-ST elevated myocardial infarction) (Acute) Stent placed mid RCA, mid LAD Surgical History Hx of heart artery stent Family History Other No pertinent family history in first degree relatives Social History Preferred Language: Italian Communication Ability: Effective Hospice Rn Required: No Beliefs That Will Affect Care: None Current Living Situation: Parent Feels Safe at Home: Yes Smoking Status: Former smoker Second Hand Exposure: No ; Hx Alcohol Use: Yes Hx Substance Use: No Review of Systems See HPI for pertinent positives & negatives. and A total of 10 systems reviewed and were otherwise negative Physical Exam Vital Signs Vital Signs - 24 hr 11/04/19 03:30 Pulse Rate 72 Pulse Rate from SpO2 Sensor 73 Respiratory Rate 24 Blood Pressure 129/77 Blood Pressure Mean 95 Pulse Oximetry 96 GENERAL: alert, well appearing, well nourished, no distress, non-toxic EYE EXAM: normal conjunctiva, PERRL and EOM's grossly intact OROPHARYNX: no exudate, no erythema, lips, buccal mucosa, and tongue normal and mucous membranes are moist NECK: supple, no nuchal rigidity, no adenopathy, non-tender LUNGS: Clear to auscultation. Normal chest wall mechanics, no w/r/r HEART: no murmurs, S1 normal and S2 normal, no reproducible chest wall tenderness. ABDOMEN: abdomen soft, non-tender, normo-active bowel sounds, no masses, no rebound or guarding. BACK: Back is symmetrical on inspection and there is no deformity, no midline tenderness, no CVA tenderness. SKIN: no rashes and no bruising UPPER EXTREMITIES: upper extremities are grossly normal. FROM, nml pulses b/l. LOWER EXTREMITIES: No pitting edema. FROM, nml pulses b/l. NEURO EXAM: Normal sensorium, cranial nerves II-XII grossly intact, normal speech, no gross weakness of arms, no gross weakness of legs. Course Course 2237: Past medical records reviewed. The patient was evaluated in room C09. A complete history and physical exam was performed. 0230: Patient updated on results. No recurrent nausea or vomiting, no recurrent abdominal pain. 0235: I spoke to Dr. Fields, [facility] [place] [facility] Hospitalist who accepts the patient for admission. 0245: The patient verbally expressed understanding and agreement of the treatment plan. The patient will be evaluated for further treatment. Administered Medications Discontinued Medications Ascorbic Acid (Vitamin C) 500 mg PO DAILY [facility] Stop: 12/04/19 08:59 Last Admin: 11/04/19 08:18 Dose: 500 mg Documented by: [id number] Aspirin (Ecotrin Ectab) 81 mg PO QAM [facility] Stop: 12/04/19 08:59 Last Admin: 11/04/19 08:18 Dose: 81 mg Documented by: [id number] Atorvastatin Calcium (Lipitor) 80 mg PO QAM [facility] Stop: 12/04/19 08:59 Last Admin: 11/04/19 08:18 Dose: 80 mg Documented by: [id number] Cyanocobalamin (Vitamin B-12) 250 mcg PO DAILY [facility] Stop: 12/04/19 08:59 Last Admin: 11/04/19 08:18 Dose: 250 mcg Documented by: [id number] Ioversol (Optiray 320 125ml) 125 ml IV ONCE PRN PRN Reason: Interaction Checking Stop: 11/08/19 01:10 Last Admin: 11/04/19 01:12 Dose: 84 ml Documented by: [id number] Lisinopril (Zestril) 5 mg PO QAM [facility] Stop: 12/04/19 08:59 Last Admin: 11/04/19 08:18 Dose: 5 mg Documented by: [id number] Medical Decision Making Differential Diagnosis Differential diagnosis includes but is not limited to etiologies such as cardiac ischemia, aortic dissection, pulmonary embolism, pneumonia, pneumothorax, musculoskeletal, infections, pericarditis, myocarditis, esophageal rupture, gastrointestinal, as well as others were entertained. Medical Records Attestation: I reviewed the patient's medical records. Home Medications Current Medication List: was personally reviewed by me Laboratory Data Attestation: I reviewed the patient's lab results. Result diagrams: 11/03/19 23:10 11/03/19 23:10 Lab Results 11/03/19 11/03/19 11/03/19 Range/Units 23:10 23:10 23:10 WBC 9.44 (4.8-10.8) K/uL RBC 4.09 L (4.2-5.4) M/uL Hgb 11.6 L (12.0-16.0) g/dL Hct 35.0 L (37-47) % MCV 85.6 (80-100) fL MCH 28.4 (25-34) pg MCHC 33.1 (32-36) g/dL RDW Std Deviation 45.5 (36.4-46.3) fL RDW Coeff of Gloria 14.6 H (11.5-14.5) % Plt Count 254 (130-400) K/uL MPV 9.3 (7.4-10.4) fL Immature Gran % (Auto) 0.1 % Neut % (Auto) 76.3 % Lymph % (Auto) 8.2 % Republic % (Auto) 6.5 % Eos % (Auto) 8.6 % Baso % (Auto) 0.3 % Immature Gran # (Auto) 0.01 (0.00-0.02) K/uL Neut # (Auto) 7.21 H (1.4-6.5) K/uL Lymph # (Auto) 0.77 L (1.2-3.4) K/uL Republic # (Auto) 0.61 H (0.11-0.59) K/uL Eos # (Auto) 0.81 H (0-0.5) K/uL Baso # (Auto) 0.03 (0-0.2) K/uL D-Dimer 900 H* (0-500) ug/L FEU Sodium 141 (136-145) mmol/L Potassium 3.8 (3.5-5.1) mmol/L Chloride 109 H (98-107) mmol/L Carbon Dioxide 26 (21-32) mmol/L Anion Gap 6.0 (3-11) BUN 7 (7-18) mg/dl Creatinine 0.81 (0.6-1.2) mg/dl Est Cr Clr Drug Dosing 96.9 ml/min Est GFR ( Amer) 98.8 Est GFR (Non-Af Amer) 85.3 BUN/Creatinine Ratio 8.6 L (10-20) Glucose 106 H (70-99) mg/dl Calcium 8.8 (8.5-10.1) mg/dl Total Bilirubin 0.4 (0.2-1) mg/dl AST 27 (15-37) U/L ALT 32 (12-78) U/L Alkaline Phosphatase 101 (45-117) U/L Troponin I < 0.015 (0-0.045) ng/ml Total Protein 7.3 (6.4-8.2) gm/dl Albumin 3.4 (3.4-5.0) gm/dl Globulin 3.9 (2.5-4.0) gm/dl Albumin/Globulin Ratio 0.9 (0.9-2) Lipase 92 (73-393) U/L Urine Color Urine Appearance (Clear) Urine pH (4.5-7.5) Ur Specific Alba (1.000-1.030) Urine Protein (Negative) Urine Glucose (UA) (Negative) Urine Ketones (Negative) Urine Blood (Negative) Urine Nitrite (Negative) Urine Bilirubin (Negative) Urine Urobilinogen (Negative) Ur Leukocyte Esterase (Negative) Urine WBC (Auto) (0-5) /hpf Urine RBC (Auto) (0-4) /hpf U Hyaline Cast (Auto) (0-5) /lpf U Epithel Cells (Auto) (0-5) /lpf Urine Bacteria (Auto) (Negative) 11/04/19 Range/Units 00:59 WBC (4.8-10.8) K/uL RBC (4.2-5.4) M/uL Hgb (12.0-16.0) g/dL Hct (37-47) % MCV (80-100) fL MCH (25-34) pg MCHC (32-36) g/dL RDW Std Deviation (36.4-46.3) fL RDW Coeff of Gloria (11.5-14.5) % Plt Count (130-400) K/uL MPV (7.4-10.4) fL Immature Gran % (Auto) % Neut % (Auto) % Lymph % (Auto) % Republic % (Auto) % Eos % (Auto) % Baso % (Auto) % Immature Gran # (Auto) (0.00-0.02) K/uL Neut # (Auto) (1.4-6.5) K/uL Lymph # (Auto) (1.2-3.4) K/uL Republic # (Auto) (0.11-0.59) K/uL Eos # (Auto) (0-0.5) K/uL Baso # (Auto) (0-0.2) K/uL D-Dimer (0-500) ug/L FEU Sodium (136-145) mmol/L Potassium (3.5-5.1) mmol/L Chloride (98-107) mmol/L Carbon Dioxide (21-32) mmol/L Anion Gap (3-11) BUN (7-18) mg/dl Creatinine (0.6-1.2) mg/dl Est Cr Clr Drug Dosing ml/min Est GFR ( Amer) Est GFR (Non-Af Amer) BUN/Creatinine Ratio (10-20) Glucose (70-99) mg/dl Calcium (8.5-10.1) mg/dl Total Bilirubin (0.2-1) mg/dl AST (15-37) U/L ALT (12-78) U/L Alkaline Phosphatase (45-117) U/L Troponin I (0-0.045) ng/ml Total Protein (6.4-8.2) gm/dl Albumin (3.4-5.0) gm/dl Globulin (2.5-4.0) gm/dl Albumin/Globulin Ratio (0.9-2) Lipase (73-393) U/L Urine Color Yellow Urine Appearance Clear (Clear) Urine pH 6.5 (4.5-7.5) Ur Specific Alba 1.033 H (1.000-1.030) Urine Protein Negative (Negative) Urine Glucose (UA) Negative (Negative) Urine Ketones 1+ H (Negative) Urine Blood Negative (Negative) Urine Nitrite Negative (Negative) Urine Bilirubin Negative (Negative) Urine Urobilinogen Negative (Negative) Ur Leukocyte Esterase 2+ H (Negative) Urine WBC (Auto) >30 H (0-5) /hpf Urine RBC (Auto) 0-4 (0-4) /hpf U Hyaline Cast (Auto) 5-10 H (0-5) /lpf U Epithel Cells (Auto) >30 H (0-5) /lpf Urine Bacteria (Auto) 1+ H (Negative) Imaging Data Radiologist's Impression: CTA CHEST: Findings: Thoracic inlet, bilateral axilla are normal. Negative for any significant lymphadenopathy. Posterior mediastinum is normal. Vascular: Negative for right ventricular strain. Mild enlargement of the left ventricle. Left and right coronary calcifications are seen. Main pulmonary artery, branches to the upper mid and lower lungs are well opacified and no filling defect to suggest pulmonary embolism. Upper abdomen: Small gastrohepatic ligament and periportal lymph nodes. Lungs: No endotracheal or endobronchial lesion. Negative for any significant or suspicious lung nodules. Bones: No lytic or blastic lesions. Impression: 1. Negative for pulmonary embolism. 2. Mild left ventricular enlargement and coronary calcifications.. Radiologist: Maegan Koehler MD Study ready at 01:23 and initial results transmitted at 01:18. ECG Data Attestation: I personally reviewed and interpreted this ECG as follows: Indication: + chest pain Rate (beats per minute): 89 Rhythm: + sinus rhythm ECG Trinity: + Normal ECG Findings: + Q waves (in leads 3, AVF, v2, and v3) and + Other (no acute ischemic changes) Comparison ECG Date: from (10/12/19) Change: the following changes noted (improved ) Blood Pressure Blood Pressure Findings: Normal blood pressure Blood Pressure Disposition: further management by hospitalist MDM Narrative Patient here due to concern for nausea vomiting and subsequent chest pain. Patient most concerned as these were symptoms similar to her recent and NSTEMI. No other new changes to otherwise explain acute nausea and vomiting this evening per her report. Of note patient briefly did have a fever at home although none on her arrival here. Because of this I was more suspicious of an infectious etiology, however labs and imaging were otherwise reassuring. Patient's troponin negative, patient had no recurrent nausea vomiting and no recurrent chest pain while in the emergency room. Unfortunately due to her multivessel coronary artery disease and 3 recent stents with similar symptoms, I was concerned about possible occult ACS. Case was discussed with hospitalist for additional intervention and management. No EKG changes were noted here. CT imaging of the chest was otherwise unremarkable. Patient's UA was concerning however suboptimal with greater than 30 epithelial cells. Patient had no urinary symptoms, will await culture to evaluate need for antibiotics. I do not suspect bacteremia/sepsis. I do not suspect occult GI bleed, perforation, bowel obstruction, mesenteric ischemia. Patient did tolerate p.o. here without difficulty and remained hemodynamically stable throughout. Impression & Plan Chest pain, Nausea & vomiting Discharge Plan Visit Data *Final* Discharge Date/Time: 11/04/19 04:50 Chief Complaint: Chest Pain Stated Complaint: CHEST PAIN,FEVER 101,VOMITING ED Provider: Jessica Belcher Discharge Problem: Chest pain, Nausea & vomiting Patient Disposition: Admitted As Inpatient Condition: Good Discharge Instructions Interventions: ED Discharge Assessment Last Done: 11/04/19 04:50 Discharge Problem: Chest pain Qualifiers: Chest pain type: unspecified Qualified Code(s): R07.9 - Chest pain, unspecified Nausea & vomiting Qualifiers: Vomiting type: unspecified Vomiting Intractability: non-intractable Qualified Code(s): R11.2 - Nausea with vomiting, unspecified The scribe's documentation has been prepared under my direction and personally reviewed by me in its entirety. I confirm that the note above accurately reflects all work, treatment, procedures, and medical decision making performed by me.
--- NOTE | 2019-11-04 03:50 | History & Physical Report ---
Date of Service November 04, 2019 Assessment & Plan (1) Chest pain: 49-year-old female was admitted on 04 November 2019 for chest pain. Of note, she is s/p cath on 04Dec for NSTEMI, having received three SHANT at that time. Chest pain, multivessel CAD, ischemic cardiomyopathy: Patient notes multiple GI symptoms as discussed below. However, after emesis this am and the return of chest pressure identical to what she felt during her NSTEMI. She says she still had some chest discomfort on arrival here (around 2230) but at present it has completely resolved (unclear exactly when, perhaps a couple hours ago). Does have a dry cough and recent fever without any shortness of breath. - 05Dec echo noted EF 40-45%, LVSF is mildly reduced, with regional wall abnormalities (see full report). - In ED, afebrile, not tachycardic, occasionally mildly tachypneic, with mild hypertension but good room SpO2. WBC 9. D-dimer positive. CTA chest overnight read noted no PE or other acute findings. Troponin at 2310 was negative. EKG at 2242 was NSR 89 with multiple Q waves but no acute STT wave abnormalities. - Continue home aspirin, atorvastatin, Plavix, lisinopril, metoprolol. Will trend her troponin and EKG. If she has any return of chest pain, will place on heparin drip. Consult cardiology. Fever, N/V/D: Patient notes onset of multiple non-bloody bowel movements yesterday and a single episode of emesis this morning after eating pumpkin pie. Reported temp 101.1 this morning, presently resolved. Denies any associated abdominal pain and is non-tender on exam. Her urinalysis here is dirty but has multiple WBCs and bacteria. Urine culture sent by ED. - She may have (gastro)enteritis. Abdomen is non-peritoneal and her vitals are quite reassuring. As patient is asymptomatic from a urinary standpoint, will wait for culture prior to any antibiotics. Continue IVF and repeat abd exam. Zofran prn for nausea. As a precaution (given a mild cough), will check for influenza as well. Anemia: Admit hemoglobin 11.6, MCV 85. Only comparison is earlier in October at 12.2. No reports of recent bleeding. Can be monitored as an outpatient. Code status: Full code. Diet: Cardiac. DVT prophy: SCDs and ambulation. PT/OT: Deferred. Disbo: Admit to [facility] telemetry for observation. (2) Multi-vessel coronary artery stenosis: (3) Ischemic cardiomyopathy: (4) Fever: (5) Nausea vomiting and diarrhea: (6) Anemia: History of Present Illness Primary Care Provider: Lashaun Denton MD 49-year-old female presents for evaluation of chest discomfort. Patient states two days ago she did not feel quite well, describing it as increased fatigue. She then developed multiple episodes of non-bloody diarrhea that may have been associated with eating some fresh pumpkin pie. No known sick contacts, recent travel, antibiotic use, or associated focal abdominal pain. Yesterday morning she continued not to feel well. She says her mother took her temperature noting a fever of 101.1. Patient then had a single episode of non-bloody emesis. Shortly after this she developed central, non-radiating chest pressure that she says feels identical to when she ultimately was diagnosed with an NSTEMI back on [place] (now s/p cath and three SHANT). Because of this, she had someone drive her here to the hospital. She denies any difficulty breathing throughout this time. She says on arrival she still had some chest discomfort. At time of this H&P earlier in the morning, patient was found resting comfortably. She says that her chest discomfort has completely resolved. Den ies any difficulty breathing, abdominal pain, or any bowel movements in the past 24 hours. Denies any further emesis as well. Regarding her fever, she says she has had a bit of a cough recently but denies any shortness of breath or pleuritic component. No other acute patient concerns. - Past medical history includes NSTEMI, multivessel CAD, ischemic cardiomyopathy, right knee arthritis. - No significant past surgical history. Has had PCI on c. - Social history includes former smoker (19 years ago for a couple years). Denies alcohol use. Lives at home with family. Allergies Allergy/AdvReac Type Severity Reaction Status Date / Time TOPICAL IODINE Allergy Intermediate "SKIN Uncoded 11/03/19 22:58 BLISTERS" Home Medications Home Medications Medication Instructions Recorded Confirmed Type acetaminophen 1,000 mg PO BID PRN 07/19/18 11/03/19 History ascorbic acid (vitamin C) [Vitamin 500 mg PO DAILY 10/12/19 11/03/19 History C] cyanocobalamin (vitamin B-12) 250 mcg PO DAILY 10/12/19 11/03/19 History [Vitamin B-12] aspirin [Ecotrin Low Strength] 81 mg PO QAM #30 tab 10/14/19 11/03/19 Rx atorvastatin 80 mg tablet 80 mg PO QAM #30 tab 10/18/19 11/03/19 Rx clopidogrel 75 mg tablet 75 mg PO QPM #30 tab 10/18/19 11/03/19 Rx lisinopril 5 mg tablet 5 mg PO QAM #30 tab 10/18/19 11/03/19 Rx metoprolol succinate 50 mg 50 mg PO QPM #30 tab 10/18/19 11/03/19 Rx tablet,extended release 24 hr A & R--Otc 1 tab PO DAILY 11/03/19 11/03/19 History New Life Formula Vits 1 tab PO DAILY 11/03/19 11/03/19 History Past Med/Surg History Medical History Acute systolic (congestive) heart failure Multi-vessel coronary artery stenosis Non-STEMI (non-ST elevated myocardial infarction) (Acute) Stent placed mid RCA, mid LAD Surgical History Hx of heart artery stent Family History Other No pertinent family history in first degree relatives Social History Preferred Language: Occitan Communication Ability: Effective 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 Eyes: Denies any visual loss or diplopia ENT: Denies any ear/nose/throat pain or difficulty speaking or swallowing Respiratory: Positive occasional dry cough. Denies dyspnea or hemoptysis. Cardiovascular: Positive chest pain. Denies feeling of edema. Gastrointestinal: Denies any abdominal pain. Transient nausea, vomiting, and diarrhea. Musculoskeletal: Denies any acute extremity pains, myalgias, or focal weakness Skin: Denies any known acute rashes or lesions Neuro: Denies any headache, acute focal weakness or numbness, or difficulties with speech or swallow. Physical Exam Physical Exam: GENERAL: Initially found patient sleeping. Awoke easily, pleasantly conversational, does not appear in any distress. HENT: Normocephalic, atraumatic. Oropharynx unremarkable. EYES: Normal conjunctiva. Sclera non-icteric. NECK: Inspection normal. Supple and full ROM. No nuchal rigidity. CARDIAC: +S1S2 RRR, no murmurs. RESPIRATORY: Clear to auscultation. No wheezes or rales. Normal respiratory effort. Rare dry cough in room. GI: +BS, soft, non-distended. No tenderness to palpation throughout. No rebound or guarding. EXTREMITIES: No pedal edema or calf tenderness. Moving all extremities naturally and easily. NEURO: No gross neuro deficits. Results & Data Vital Signs (Past 12 Hours) Vital Signs Temp Pulse Pulse Resp BP BP Pulse Ox 11/04/19 03:30 72 24 129/77 96 11/04/19 03:00 66 23 136/81 94 11/04/19 02:30 70 24 131/97 94 11/04/19 02:11 81 14 126/86 94 11/04/19 02:00 73 24 123/77 96 11/04/19 01:30 73 18 137/71 95 11/04/19 00:59 81 24 131/82 96 11/04/19 00:00 77 24 118/73 97 11/03/19 23:33 96 11/03/19 23:30 81 16 132/70 98 11/03/19 22:54 82 27 H 166/103 H 94 11/03/19 22:36 37.1 C 93 H 18 146/90 H 92 Laboratory Results 11/04/19 11/03/19 11/03/19 Range/Units 00:59 23:10 23:10 WBC 9.44 (4.8-10.8) K/uL RBC 4.09 L (4.2-5.4) M/uL Hgb 11.6 L (12.0-16.0) g/dL Hct 35.0 L (37-47) % MCV 85.6 (80-100) fL MCH 28.4 (25-34) pg MCHC 33.1 (32-36) g/dL RDW Std Deviation 45.5 (36.4-46.3) fL RDW Coeff of Gloria 14.6 H (11.5-14.5) % Plt Count 254 (130-400) K/uL MPV 9.3 (7.4-10.4) fL Immature Gran % (Auto) 0.1 % Neut % (Auto) 76.3 % Lymph % (Auto) 8.2 % [place] % (Auto) 6.5 % Eos % (Auto) 8.6 % Baso % (Auto) 0.3 % Immature Gran # (Auto) 0.01 (0.00-0.02) K/uL Neut # (Auto) 7.21 H (1.4-6.5) K/uL Lymph # (Auto) 0.77 L (1.2-3.4) K/uL [place] # (Auto) 0.61 H (0.11-0.59) K/uL Eos # (Auto) 0.81 H (0-0.5) K/uL Baso # (Auto) 0.03 (0-0.2) K/uL D-Dimer (0-500) ug/L FEU Sodium 141 (136-145) mmol/L Potassium 3.8 (3.5-5.1) mmol/L Chloride 109 H (98-107) mmol/L Carbon Dioxide 26 (21-32) mmol/L Anion Gap 6.0 (3-11) BUN 7 (7-18) mg/dl Creatinine 0.81 (0.6-1.2) mg/dl Est Cr Clr Drug Dosing 96.9 ml/min Est GFR ( Amer) 98.8 Est GFR (Non-Af Amer) 85.3 BUN/Creatinine Ratio 8.6 L (10-20) Glucose 106 H (70-99) mg/dl Calcium 8.8 (8.5-10.1) mg/dl Total Bilirubin 0.4 (0.2-1) mg/dl AST 27 (15-37) U/L ALT 32 (12-78) U/L Alkaline Phosphatase 101 (45-117) U/L Troponin I < 0.015 (0-0.045) ng/ml Total Protein 7.3 (6.4-8.2) gm/dl Albumin 3.4 (3.4-5.0) gm/dl Globulin 3.9 (2.5-4.0) gm/dl Albumin/Globulin Ratio 0.9 (0.9-2) Lipase 92 (73-393) U/L Urine Color Yellow Urine Appearance Clear (Clear) Urine pH 6.5 (4.5-7.5) Ur Specific [place] 1.033 H (1.000-1.030) Urine Protein Negative (Negative) Urine Glucose (UA) Negative (Negative) Urine Ketones 1+ H (Negative) Urine Blood Negative (Negative) Urine Nitrite Negative (Negative) Urine Bilirubin Negative (Negative) Urine Urobilinogen Negative (Negative) Ur Leukocyte Esterase 2+ H (Negative) Urine WBC (Auto) >30 H (0-5) /hpf Urine RBC (Auto) 0-4 (0-4) /hpf U Hyaline Cast (Auto) 5-10 H (0-5) /lpf U Epithel Cells (Auto) >30 H (0-5) /lpf Urine Bacteria (Auto) 1+ H (Negative) 11/03/19 Range/Units 23:10 WBC (4.8-10.8) K/uL RBC (4.2-5.4) M/uL Hgb (12.0-16.0) g/dL Hct (37-47) % MCV (80-100) fL MCH (25-34) pg MCHC (32-36) g/dL RDW Std Deviation (36.4-46.3) fL RDW Coeff of Gloria (11.5-14.5) % Plt Count (130-400) K/uL MPV (7.4-10.4) fL Immature Gran % (Auto) % Neut % (Auto) % Lymph % (Auto) % [place] % (Auto) % Eos % (Auto) % Baso % (Auto) % Immature Gran # (Auto) (0.00-0.02) K/uL Neut # (Auto) (1.4-6.5) K/uL Lymph # (Auto) (1.2-3.4) K/uL [place] # (Auto) (0.11-0.59) K/uL Eos # (Auto) (0-0.5) K/uL Baso # (Auto) (0-0.2) K/uL D-Dimer 900 H* (0-500) ug/L FEU Sodium (136-145) mmol/L Potassium (3.5-5.1) mmol/L Chloride (98-107) mmol/L Carbon Dioxide (21-32) mmol/L Anion Gap (3-11) BUN (7-18) mg/dl Creatinine (0.6-1.2) mg/dl Est Cr Clr Drug Dosing ml/min Est GFR ( Amer) Est GFR (Non-Af Amer) BUN/Creatinine Ratio (10-20) Glucose (70-99) mg/dl Calcium (8.5-10.1) mg/dl Total Bilirubin (0.2-1) mg/dl AST (15-37) U/L ALT (12-78) U/L Alkaline Phosphatase (45-117) U/L Troponin I (0-0.045) ng/ml Total Protein (6.4-8.2) gm/dl Albumin (3.4-5.0) gm/dl Globulin (2.5-4.0) gm/dl Albumin/Globulin Ratio (0.9-2) Lipase (73-393) U/L Urine Color Urine Appearance (Clear) Urine pH (4.5-7.5) Ur Specific [place] (1.000-1.030) Urine Protein (Negative) Urine Glucose (UA) (Negative) Urine Ketones (Negative) Urine Blood (Negative) Urine Nitrite (Negative) Urine Bilirubin (Negative) Urine Urobilinogen (Negative) Ur Leukocyte Esterase (Negative) Urine WBC (Auto) (0-5) /hpf Urine RBC (Auto) (0-4) /hpf U Hyaline Cast (Auto) (0-5) /lpf U Epithel Cells (Auto) (0-5) /lpf Urine Bacteria (Auto) (Negative) Medications Administered Ioversol (Optiray 320 125ml) 125 ml IV ONCE PRN PRN Reason: Interaction Checking Stop: 11/08/19 01:10 Last Admin: 11/04/19 01:12 Dose: 84 ml Documented by: [id number] Code Status & VTE Plan Code Status Full code VTE Prophylaxis Plan VTE Prophylaxis will be ordered: Yes Supervising Physician Co-Signing Physician Notes Attending addendum: I have physically seen this patient, have supervised the medical residents activities, and agree with the H&P unless as otherwise noted. Assessment and Plan: Chest pain/CAD/hypertension/history of NSTEMI and stents x3/ischemic cardiomyopathy- The patient will be admitted to telemetry for serial cardiac enzymes, serial EKG's, cardiac rhythm monitoring. Ejection fraction on 10/13 showed ejection fraction 40-45%. Continue aspirin, Plavix, lisinopril, metoprolol and atorvastatin. Patient is asymptomatic at this time. If any return of chest pain or bump in troponin or abnormal rhythm development, will begin heparin infusion at that time. Elevated d-dimer- D-dimer 900 on admission. CTA chest negative for PE. May be associated with recent cardiac thromboses. Consult cardiology. Remainder of orders and notations as noted. Resident Activity Tracking Resident Involvement: Resident Care Provided Care Provided: Adult Hospital Medicine (1) Chest pain Chest pain type: unspecified Qualified Code(s): R07.9 - Chest pain, unspecified
[2019-11-04] MEDS ORDERED: ACETAMINOPHEN 500 MG TAB PO PRN (05:29)
[2019-11-04] MEDS ORDERED: ONDANSETRON INJ 2 MG/ML 2 ML VIAL IV PRN (05:29)
[2019-11-04 06:31] LABS: Influenza A virus by PCR Neg for Influ A (Neg); Influenza B virus by PCR Neg for Influ B (Neg)
--- NOTE | 2019-11-04 06:31 | XRay Report ---
XR chest 1V portable CLINICAL HISTORY: Atypical chest pain COMPARISON STUDY: 10/12/2019 FINDINGS: The cardiac and mediastinal contours are normal. There is no evidence of focal pulmonary co nsolidation. There is no evidence of failure. No pleural effusions are visualized.[ IMPRESSION: No active disease in the chest. ACT 112: Negative or not required by law. Electronically signed by: Johnathon Rocha M.D. 11/04/2019 6:29 AM
--- NOTE | 2019-11-04 07:00 | CT Scan Report ---
CT ANGIOGRAPHY OF THE CHEST, PULMONARY EMBOLUS PROTOCOL CLINICAL HISTORY: Shortness of breath and chest pain. COMPARISON STUDY: Chest radiograph October 12, 2019 and November 03, 2019. TECHNIQUE: Following IV administration of 84 mL of Optiray-320, helical axial images of the chest wer e obtained utilizing the pulmonary embolus protocol. Maximal intensity projections and sagittal and coronal reformats were viewed on an independent 3D workstation. IV contrast was administered without complication. Automated exposure control was utilized for the study. A dose lowering technique was utilized adhering to the principles of ALARA. CT DOSE: 496.06 mGy.cm FINDINGS: No pulmonary emboli are identified. There is no thoracic aortic dissection. There is mild cardiomegaly. No pericardial effusion is noted. Coronary artery stents are noted. There is no pneumot horax or pleural effusion. No enlarged axillary, mediastinal or hilar lymph nodes are noted. The cent ral airways are patent. There is no consolidation to suggest pneumonia. Subpleural groundglass opacit ies reflect atelectasis. Bony thorax is unremarkable. IMPRESSION: 1. No pulmonary emboli identified. 2. No acute findings within the chest. 3. Mild cardiomegaly. ACT 112: Negative or not required by law. Electronically signed by: James Denton M.D. 11/04/2019 6:59 AM
[2019-11-04] MEDS ORDERED: ASPIRIN 81 MG ECTAB PO SCH (09:00)
[2019-11-04] MEDS ORDERED: ASCORBIC ACID 500 MG TAB PO SCH (09:00)
[2019-11-04] MEDS ORDERED: ATORVASTATIN 40 MG TAB PO SCH (09:00)
[2019-11-04] MEDS ORDERED: lisinopriL 5 MG TAB PO SCH (09:00)
[2019-11-04] MEDS ORDERED: CYANOCOBALAMIN 500 MCG TABLET (VITAMIN B-12) PO SCH (09:00)
--- NOTE | 2019-11-04 10:17 | Cardiology Consultation ---
Date of Consultation November 04, 2019 Assessment & Plan (1) Ischemic cardiomyopathy: Element of reduced LV systolic function. Her ejection fraction was estimated 40-45 percent during her last admission. She is not appear to have any decompensated heart failure. She is not complaining of significant dyspnea. Her lung examination is normal. Both chest x-ray and CT did not demonstrate pulmonary edema. She can continue on her outpatient medical regimen which includes lisinopril and metoprolol succinate. Hopefully with revascularization and medical therapy will see normalization of her LV function. She is not in a category of patients who require an ICD as primary prevention. (2) Multi-vessel coronary artery stenosis: She underwent successful percutaneous intervention involving the right coronary and LAD at the last hospitalization. I do not believe she has had any acute stent thrombosis or that her current symptoms represent an acute coronary syndrome. She is on high-dose atorvastatin, aspirin, Plavix and metoprolol. (3) Nausea vomiting and diarrhea: While her presenting symptoms have some features which are similar to her prior angina, there are differences. Previously most of her symptoms occurred with exertion after eating. This instance she had the acute onset of vomiting without any exertion. Her current symptoms are also in the setting of other features suggestive of a viral gastroenteritis. There has been no elevation in her biomarkers. Her EKG did not demonstrate ischemic changes. Most likely problem in the short term after PCI would be acute stent thrombosis. This generally presents like an acute myocardial infarction. She has no evidence of ischemia or infarction. I think if her markers continued to be negative and she is ambulatory without symptoms of ischemic pain she could be discharged with treatment of would is more likely a viral illness rather than an acute coronary syndrome. History of Present Illness Reason for Consultation: Chest pain Requesting Physician: Mehran Attending Physician: Pérez Martini MD History of Present Illness The patient is a 49-year-old woman with a history of coronary artery disease had a previously suffered a non ST elevation myocardial infarction and early October 2019. During that hospitalization she did undergo coronary angiography and had percutaneous intervention involving both the LAD and right coronary artery. Her symptoms leading up to that admission did involve frequent vomiting. Typically the patient would eat a meal and developed significant nausea, vomiting and chest discomfort approximately 30 minutes later. The occasion which brought her into the hospital lasted longer and did not resolve in the usual fashion. Patient has done well since her heart attack, apparently 3 days ago began to feel poorly. This was described by the patient as not feeling right. She felt that she had a chill at work. She began to feel more fatigued and unwell overall. She did have several loose bowel movements that she attributes to eating pumpkin pie. His today them morning the patient did not go to work as she was not feeling well. She had some abdominal complaints and actually vomited once in the morning. The remainder of the day she was notably fatigued and rested. She is a very light lunch. In the evening she ate a heavy ear dinner. She continued to feel fatigued and after doing some laundry at a [employer] came home to rest. Approximately 3 hours after eating dinner the patient began to experience chills and had vomiting. After vomiting she had 2 very brief in fleeting episodes of chest discomfort that she described as a squeezing. Based on the nature of her symptoms and her prior history of heart disease she felt like an evaluation in the emergency room was necessary. She did not have chest pain at the time of arrival. According to the patient her mother took her temperature while at home prior to coming to the emergency room and she had fever of 101 degrees. She has not been very active since her heart attack. She has resumed work at [email or web address]. She has done some walking but recently has not felt like walking due to fatigue. She has not had any recurrent symptoms until the past few days. This morning she is feeling better. She does not have any nausea. She has not vomited. She tolerated breakfast. Allergies Allergy/AdvReac Type Severity Reaction Status Date / Time TOPICAL IODINE Allergy Intermediate "SKIN Uncoded 11/03/19 22:58 BLISTERS" Home Medications Home Medications Medication Instructions Recorded Confirmed Type acetaminophen 1,000 mg PO BID PRN 07/19/18 11/03/19 History ascorbic acid (vitamin C) [Vitamin 500 mg PO DAILY 10/12/19 11/03/19 History C] cyanocobalamin (vitamin B-12) 250 mcg PO DAILY 10/12/19 11/03/19 History [Vitamin B-12] aspirin [Ecotrin Low Strength] 81 mg PO QAM #30 tab 10/14/19 11/03/19 Rx atorvastatin 80 mg tablet 80 mg PO QAM #30 tab 10/18/19 11/03/19 Rx clopidogrel 75 mg tablet 75 mg PO QPM #30 tab 10/18/19 11/03/19 Rx lisinopril 5 mg tablet 5 mg PO QAM #30 tab 10/18/19 11/03/19 Rx metoprolol succinate 50 mg 50 mg PO QPM #30 tab 10/18/19 11/03/19 Rx tablet,extended release 24 hr A & R--Otc 1 tab PO DAILY 11/03/19 11/03/19 History New Life Formula Vits 1 tab PO DAILY 11/03/19 11/03/19 History Patient History Medical History Acute systolic (congestive) heart failure Multi-vessel coronary artery stenosis Non-STEMI (non-ST elevated myocardial infarction) (Acute) Stent placed mid RCA, mid LAD Surgical History Hx of heart artery stent Family History Other No pertinent family history in first degree relatives Social History Preferred Language: Slovenian Communication Ability: Effective Operations Assistant Required: No Beliefs That Will Affect Care: None Current Living Situation: Parent Feels Safe at Home: Yes Smoking Status: Former smoker Second Hand Exposure: No ; Hx Alcohol Use: Yes Hx Substance Use: No Review of Systems Review of Systems: All systems reviewed & are unremarkable except as noted in HPI & below Physical Exam Physical Exam: She is alert and oriented x3. Mood affect appear normal. She answered all questions appropriately. Tearful at times. HEENT: Sclerae are anicteric. Pupils are equal and reactive to light and accommodation. Extraocular movements were intact. Neuro: Cranial nerves intact Neck: Examination of the submandibular region did not reveal any significant lymphadenopathy. Carotids are palpable bilaterally and free of bruits on auscultation. There was no evidence of jugular venous distention. The thyroid was not enlarged. Lungs: Lungs are clear to auscultation bilaterally. There are no rales wheezes or rhonchi. She has normal respiratory effort without use of accessory muscles. There is normal pulmonary excursion. Cardiac: The rhythm was regular. S1 and S2 were normal. There are no murmurs on examination. The PMI was not markedly displaced on palpation. Abdomen: The abdomen was soft and nontender. Extremities: Patient has bilateral radial pulses that are equal in intensity. There is no evidence cyanosis or clubbing. There was no evidence of significant peripheral edema bilaterally. Skin: There are no rashes noted on examination today. Results & Data Vital Signs (Past 12 Hours) Vital Signs Temp Pulse Pulse Pulse Resp BP BP 11/04/19 10:00 67 11/04/19 07:12 37.1 C 66 18 113/72 11/04/19 05:52 37.3 C 74 16 139/89 11/04/19 05:29 37.3 C 74 18 139/89 11/04/19 04:30 66 24 132/79 11/04/19 04:00 65 26 H 145/89 H 11/04/19 03:30 72 24 129/77 11/04/19 03:00 66 23 136/81 11/04/19 02:30 70 24 131/97 11/04/19 02:11 81 14 126/86 11/04/19 02:00 73 24 123/77 11/04/19 01:30 73 18 137/71 11/04/19 00:59 81 24 131/82 11/04/19 00:00 77 24 118/73 11/03/19 23:33 11/03/19 23:30 81 16 132/70 11/03/19 22:54 82 27 H 11/03/19 22:36 37.1 C 93 H 18 146/90 H BP Pulse Ox 11/04/19 10:00 11/04/19 07:12 94 11/04/19 05:52 96 11/04/19 05:29 96 11/04/19 04:30 95 11/04/19 04:00 94 11/04/19 03:30 96 11/04/19 03:00 94 11/04/19 02:30 94 11/04/19 02:11 94 11/04/19 02:00 96 11/04/19 01:30 95 11/04/19 00:59 96 11/04/19 00:00 97 11/03/19 23:33 96 11/03/19 23:30 98 11/03/19 22:54 166/103 H 94 11/03/19 22:36 92 Laboratory Results Abnormal Lab Results 11/03/19 11/03/19 11/03/19 23:10 23:10 23:10 WBC 9.44 RBC 4.09 L Hgb 11.6 L Hct 35.0 L MCV 85.6 MCH 28.4 MCHC 33.1 RDW Std Deviation 45.5 RDW Coeff of Gloria 14.6 H Plt Count 254 MPV 9.3 Immature Gran % (Auto) 0.1 Neut % (Auto) 76.3 Lymph % (Auto) 8.2 Motley % (Auto) 6.5 Eos % (Auto) 8.6 Baso % (Auto) 0.3 Immature Gran # (Auto) 0.01 Neut # (Auto) 7.21 H Lymph # (Auto) 0.77 L Motley # (Auto) 0.61 H Eos # (Auto) 0.81 H Baso # (Auto) 0.03 D-Dimer 900 H* Sodium 141 Potassium 3.8 Chloride 109 H Carbon Dioxide 26 Anion Gap 6.0 BUN 7 Creatinine 0.81 Est Cr Clr Drug Dosing 96.9 Est GFR ( Amer) 98.8 Est GFR (Non-Af Amer) 85.3 BUN/Creatinine Ratio 8.6 L Glucose 106 H Calcium 8.8 Total Bilirubin 0.4 AST 27 ALT 32 Alkaline Phosphatase 101 Troponin I < 0.015 Total Protein 7.3 Albumin 3.4 Globulin 3.9 Albumin/Globulin Ratio 0.9 Lipase 92 Urine Color Urine Appearance Urine pH Ur Specific [place] Urine Protein Urine Glucose (UA) Urine Ketones Urine Blood Urine Nitrite Urine Bilirubin Urine Urobilinogen Ur Leukocyte Esterase Urine WBC (Auto) Urine RBC (Auto) U Hyaline Cast (Auto) U Epithel Cells (Auto) Urine Bacteria (Auto) Influenza Type A (PCR) Influenza Type B (PCR) 11/04/19 11/04/19 11/04/19 00:59 05:30 05:44 WBC RBC Hgb Hct MCV MCH MCHC RDW Std Deviation RDW Coeff of Gloria Plt Count MPV Immature Gran % (Auto) Neut % (Auto) Lymph % (Auto) [place] % (Auto) Eos % (Auto) Baso % (Auto) Immature Gran # (Auto) Neut # (Auto) Lymph # (Auto) Motley # (Auto) Eos # (Auto) Baso # (Auto) D-Dimer Sodium Potassium Chloride Carbon Dioxide Anion Gap BUN Creatinine Est Cr Clr Drug Dosing Est GFR ( Amer) Est GFR (Non-Af Amer) BUN/Creatinine Ratio Glucose Calcium Total Bilirubin AST ALT Alkaline Phosphatase Troponin I < 0.015 Total Protein Albumin Globulin Albumin/Globulin Ratio Lipase Urine Color Yellow Urine Appearance Clear Urine pH 6.5 Ur Specific [place] 1.033 H Urine Protein Negative Urine Glucose (UA) Negative Urine Ketones 1+ H Urine Blood Negative Urine Nitrite Negative Urine Bilirubin Negative Urine Urobilinogen Negative Ur Leukocyte Esterase 2+ H Urine WBC (Auto) >30 H Urine RBC (Auto) 0-4 U Hyaline Cast (Auto) 5-10 H U Epithel Cells (Auto) >30 H Urine Bacteria (Auto) 1+ H Influenza Type A (PCR) Neg for Influ A Influenza Type B (PCR) Neg for Influ B Diagnostic Findings Chest x-ray obtained at the time of admission did not reveal any acute cardiopulmonary process D-dimer was markedly elevated at the time of admission and chest CT protocol did not reveal any pulmonary embolus or other intrathoracic abnormality. ECG Additional Comments: EKG obtained attack admission revealed normal sinus rhythm without acute ST or T-wave changes PG Care Time/CCT Total # of Minutes Spent Total Time Spent with Patient: Total time spent is greater than 50% in coordination of care (as documented) at patient's floor/unit and/or counseling patient:
--- NOTE | 2019-11-04 14:26 | Discharge Summary ---
Date of Service November 04, 2019 Admission HPI Per Admitting Provider 49-year-old female presents for evaluation of chest discomfort. Patient states two days ago she did not feel quite well, describing it as increased fatigue. She then developed multiple episodes of non-bloody diarrhea that may have been associated with eating some fresh pumpkin pie. No known sick contacts, recent travel, antibiotic use, or associated focal abdominal pain. Yesterday morning she continued not to feel well. She says her mother took her temperature noting a fever of 101.1. Patient then had a single episode of non-bloody emesis. Shortly after this she developed central, non-radiating chest pressure that she says feels identical to when she ultimately was diagnosed with an NSTEMI back on 04Dec (now s/p cath and three SHANT). Because of this, she had someone drive her here to the hospital. She denies any difficulty breathing throughout this time. She says on arrival she still had some chest discomfort. At time of this H&P earlier in the morning, patient was found resting comfortably. She says that her chest discomfort has completely resolved. Denies any difficulty breathing, abdominal pain, or any bowel movements in the past 24 hours. Denies any further emesis as well. Regarding her fever, she says she has had a bit of a cough recently but denies any shortness of breath or pleuritic component. No other acute patient concerns. - Past medical history includes NSTEMI, multivessel CAD, ischemic cardiomyopathy, right knee arthritis. - No significant past surgical history. Has had PCI on 04Dec. - Social history includes former smoker (19 years ago for a couple years). Denies alcohol use. Lives at home with family. Admission Exam Per Admitting Provider Physical Exam: GENERAL: Initially found patient sleeping. Awoke easily, pleasantly conversational, does not appear in any distress. HENT: Normocephalic, atraumatic. Oropharynx unremarkable. EYES: Normal conjunctiva. Sclera non-icteric. NECK: Inspection normal. Supple and full ROM. No nuchal rigidity. CARDIAC: +S1S2 RRR, no murmurs. RESPIRATORY: Clear to auscultation. No wheezes or rales. Normal respiratory effort. Rare dry cough in room. GI: +BS, soft, non-distended. No tenderness to palpation throughout. No rebound or guarding. EXTREMITIES: No pedal edema or calf tenderness. Moving all extremities naturally and easily. NEURO: No gross neuro deficits. Principal Diagnosis Viral Gastroenteritis Atypical chest pain Discharge Exam Constitutional well developed and well nourished; no acute distress Eyes + anicteric sclerae; normal pupil size ENMT external ear and nose normal, oropharynx normal Neck normal visual inspection and trachea midline Respiratory normal respiratory effort, lungs clear to auscultation Cardiovascular RRR, no murmur, no edema Gastrointestinal (Abdomen) normal bowel sounds, soft, nontender, no hepatosplenomegaly Musculoskeletal no cyanosis or clubbing, extremities motor strength 5/5 Skin no rashes, warm and dry Neurologic moves all extremities and awake; not confused Psychiatric A+Ox3, euthymic affect Discharge Data Allergies Allergy/AdvReac Type Severity Reaction Status Date / Time TOPICAL IODINE Allergy Intermediate "SKIN Uncoded 11/03/19 22:58 BLISTERS" Consultations 11/04/19 02:54 ED Decision to Admit Stat 11/04/19 05:29 Consult Cardiology Routine Ordered Studies 11/04/19 00:10 CT angio chest PE protocol Urgent Hospital Course (1) Chest pain: Vidhya Blandon is a 49 year old female admitted to [facility] on November 04 2019 due to chest pain and vomiting. She had a similar presentation prior to her NSTEMI at the start of October however on this occasion her pain was long lasting and not exertional. Serial troponins were negative and she was reviewed by cardiology and pain felt to be non cardiac. Based upon her history she was diagnosed with viral gastroenteritis and suspect chest pain due to vomiting alone vs. esophageal spasm. No further fevers during her admission and tolerating a regular diet. She was walked around the [place]vin without chest pain prior to discharge. No medication changes were made. (2) Multi-vessel coronary artery stenosis: (3) Ischemic cardiomyopathy: (4) Nausea vomiting and diarrhea: (5) Anemia: Total Time Total Time Spent Total Time Spent (In Minutes): 50 Total Time Includes: Examination of the Patient, Discharge Planning, Medication Reconciliation and Communication With Other Providers (Dr Farris) Discharge Plan Discharge Items Patient Disposition: Home - Self-Care Reason For Visit: CHEST PAIN, N/V/D Discharge Diagnosis: Viral Gastroenteritis Atypical chest pain Condition on Discharge: Good Activity: Resume your previous activity Non-emergency contact: Primary Care Provider Call non-emergency contact if: you have any medication questions, your symptoms worsen and your temperature is above 101 Follow-up/Referrals: Lashaun Denton MD [Primary Care Provider] - Diet: Heart Healthy Addtl Attending Provider Instructions: You were admitted to [facility] on November 04 2019 due to chest pain. You were diagnosed with viral gastroenteritis and suspect chest pain due to vomiting and possible esophageal spasm. Heart attack was ruled out. No further fevers during your admission and tolerating a regular diet. No medication changes recommended at this time. Please follow up with your primary care physician in the next 2 weeks. Pending Studies at Discharge: No Stand-Alone Forms: Call Back Authorization, [facility], Work/School Release (Inpt), Smoking Cessation Medications and DC Order Prescriptions: Continued atorvastatin 80 mg tablet 80 mg PO QAM Qty: 30 RF: 5 clopidogrel [Plavix] 75 mg tablet 75 mg PO QPM Qty: 30 RF: 5 lisinopril [Zestril] 5 mg tablet 5 mg PO QAM Qty: 30 RF: 5 metoprolol succinate 50 mg tablet extended release 24 hr 50 mg PO QPM Qty: 30 RF: 5 cyanocobalamin (vitamin B-12) [Vitamin B-12] 250 mcg Tablet 250 mcg PO DAILY RF: 0 ascorbic acid (vitamin C) [Vitamin C] 500 mg Tablet 500 mg PO DAILY RF: 0 aspirin [Ecotrin Low Strength] 81 mg Tablet,Delayed Release (Dr/Ec) 81 mg PO QAM Qty: 30 RF: 0 acetaminophen 500 mg Tablet 1,000 mg PO BID PRN (Reason: Pain) RF: 0 A & R--Otc 1 tab PO DAILY RF: 0 New Life Formula Vits 1 tab PO DAILY RF: 0 Discharge Orders: Discharge Order (Routine); Ordered 11/04/19 Ordered By: Pérez Martini Admission Data Admit Date/Time: 11/04/19 03:34 Attending Provider: Pérez Martini Admit Provider: Neftali Bello Primary Care Provider: Lashaun Denton Other Providers: Maxime Jackson ; Jeffrey Currie Other Interventions: Discharge Summary Assessment (RN) Last Done: 11/04/19 14:26 DC Date/Time DO NOT enter until pt leaves facility: 11/04/19 14:55
[2019-11-04] MEDS ORDERED: METOPROLOL SUCC 50MG EXT REL TAB PO SCH (21:00)
[2019-11-04] MEDS ORDERED: CLOPIDOGREL BISULFATE 75 MG TAB PO SCH (21:00)
--- NOTE | 2019-11-05 05:17 | Billing Data ---
Date of Service November 05, 2019 Coding Level of Care Code 97041 OBS Care - Level 3
== END 2019-11-04 14:55 | disposition home or self-care (01) ==
LOC: 2W 22:34 → ED 22:34 → SUATTDRO 11-04 03:34 → 2W 11-04 04:50